=== PATIENT | male | born 1980 | race American Indian/Alaskan Native ===

== ENCOUNTER 2018-02-17 08:08 | Observation (INO) | payer MEDICARE ==
[~2018-02-17 08:08] MED LIST: ANCEF/STERILE WATER 2 GM/20 ML 2 GM/20 ML SYRINGE IV NR; LACTATED RINGERS 1,000 ML IV SCH; VERSED IV NR
--- NOTE | 2018-02-17 08:54 | Anesthesia Day of Surgery ---
Anesthesia Day of Surgery - Day of Surgery Patient Examined: Yes Patient H&P Reviewed: Yes Patient is NPO: Yes
--- NOTE | 2018-02-17 08:54 | Anesthesia Consultation ---
Anesthesia Consult and Med Hx Date of service: 02/17/18 - Airway Anesthetic Teeth Evaluation: Poor ROM Head & Neck: Adequate Mental/Hyoid Distance: Adequate Mallampati Class: Class II Intubation Access Assessment: Probably Good - Pulmonary Exam CTA: Yes - Cardiac Exam Cardiac Exam: RRR - Pre-Operative Health Status ASA Pre-Surgery Classification: ASA4 Proposed Anesthetic Plan: General - Pulmonary Hx Smoking: Yes - Cardiovascular System Hx Hypertension: Yes - Central Nervous System Hx Psychiatric Problems: No - Endocrine Hx Renal Disease: Yes Hx End Stage Renal Disease: Yes Hx Insulin Dependent Diabetes: Yes - Other Systems Hx Alcohol Use: No Hx Substance Use: Yes (Marijuana every other day) Hx Cancer: No - Additional Comments Anesthesia Medical History Comments: glaucoma, right eye blindness
[2018-02-17 08:55] LABS: Basophils % (Auto) 0.7 % (0.0-1.8); Eosinophils # (Auto) 0.5 K/mm3 (0.0-0.4); Eosinophils % (Auto) 9.6 % (0.0-4.3); Hematocrit 34.5 % (35.5-45.6); Hemoglobin 11.6 gm/dl (11.8-15.2); Lymphocytes # (Auto) 1.2 K/mm3 (1.2-5.4); Lymphocytes % (Auto) 22.3 % (13.4-35.0); Mean Corpuscular HGB Conc 34 % (32-34); Mean Corpuscular Hemoglobin 30 pg (28-32); Mean Corpuscular Volume 89 fl (84-94); Monocytes # (Auto) 0.4 K/mm3 (0.0-0.8); Monocytes % (Auto) 8.2 % (0.0-7.3); Platelet Count 197 K/mm3 (140-440); Red Blood Count 3.87 M/mm3 (3.65-5.03); Red Cell Distribution Width 18.4 % (13.2-15.2)
[2018-02-17] MEDS ORDERED: SUBLIMAZE IV PRN (08:55)
[2018-02-17] MEDS ORDERED: PEPCID IV NR (09:00)
[2018-02-17] MEDS: NACL 0.9% 1000 ML 1,000 ML IV SCH ×2 (09:05→17:30)
[2018-02-17 09:07] LABS: Calcium 9.7 mg/dL (8.4-10.2)
[2018-02-17] MEDS ORDERED: NACL 0.9% 500 ML 500 ML ONE (09:39)
[2018-02-17] MEDS ORDERED: PROTAMINE SULFATE ONE (09:39)
[2018-02-17] MEDS ORDERED: XYLOCAINE 1%/ EPI 1:100,000 INFILTRATI ONE (09:39)
[2018-02-17] MEDS ORDERED: MARCAINE 0.5% 30 ML INFILTRATI ONE (09:39)
[2018-02-17] MEDS ORDERED: HEPARIN 10,000 UNITS/10 ML ONE (09:39)
[2018-02-17] MEDS ORDERED: XYLOCAINE MPF 2% ONE (10:35)
[2018-02-17] MEDS ORDERED: DIPRIVAN 10 MG/ML IV ONE ×2 (10:36→11:07)
[2018-02-17] MEDS ORDERED: SUBLIMAZE ONE (10:36)
[2018-02-17] MEDS ORDERED: HEPARIN 10,000 UNITS/10 ML 2,000 UNIT in NACL 0.9% 500 ML 500 ML IR ONE (11:01)
[2018-02-17] MEDS ORDERED: MARCAINE 0.5% INFILTRATI ONE ×2 (11:16)
[2018-02-17] MEDS ORDERED: NEO SYNEPHRINE/NS Syringe(OR USE) IV ONE (11:17)
[2018-02-17] MEDS ORDERED: NACL 0.9% IR ONE (11:17)
[2018-02-17] MEDS ORDERED: DILAUDID ONE (11:39)
--- NOTE | 2018-02-17 13:45 | Operative Report ---
Operative Report Operative Report: Operative note: Date: 02/17/2018 Preoperative diagnosis: Renal failure requiring hemodialysis Postoperative diagnosis: Same. Operation: Creation of first stage left brachial basilic AV fistula Surgeon: Mallory Palma. Asst.:Marcio Puga Anesthesia: Gen. EBL: Minimal Findings:. patent brachial artery with plaque. Patient did not have palpable radial or ulnar pulses before procedure. Indications: Patient is 37-year-old gentleman currently on hemodialysis via right IJ PermCath came to office to schedule for permanent access creation. She had AV mapping performed showing the best option is basilic vein AV fistula. Patient was discussed risk and benefits of procedure and chose to proceed, signed informed consent. Operative details: The ultrasound was performed identifying basilic vein. It was compressible is good size throughout its length. Incision was made about 1 cm below elbow crease in vertical fashion above marked basilic vein branches. Timeout was performed. I dissected around basilic vein mobilizing it. Another incision in the vertical fashion on top of marked brachial artery was created was 15 blade and carried down with electrocautery. Brachial aponeurosis was incised and brachial artery was dissected it was taken on vessel loops distally and proximally. Basilic vein was transected distally and was ligated with 3-0 silk. It was irrigated with heparinized saline with olive-tipped syringe. Patient was heparinozed. Distal and proximal control of brachial artery was gained by vessel loops. Since the artery was very calcified, distal and proximal control was also gained by angled vascular DeBakey clamps. Arteriotomy was created with 11 blade and extended with Taylor scissors. Anastomosis was created was running 6-0 Prolene. When the artery was unclamped , there was identified Doppler radial and ulnar signals and thrill in the basilic vein. Hemostasis was achieved with electrocautery and wound was closed in 2 layers with 3-0 Vicryl and 4-0 Monocryl. Dermabond glue applied. Needle and sponge counts were correct 2. Patient tolerated procedure well and was transferred to PACU in stable condition.
[2018-02-17] MEDS ORDERED: NORCO 5/325 PO PRN (13:46)
[2018-02-17] MEDS ORDERED: NORMODYNE IV ONE ×2 (14:16→14:30)
--- NOTE | 2018-02-17 14:26 | Post Anesthesia Evaluation ---
- Post Anesthesia Evaluation Patient Participated: Yes Airway Patent: Yes Stable Respiratory Function: Yes Nausea/Vomiting: No Temp > 96.8F: Yes Pain Manageable: Yes Adequeate Hydration: Yes Anesthesia Complications: No
[2018-02-17] MEDS ORDERED: NORMODYNE IV NR (15:00)
--- NOTE | 2018-02-17 17:08 | History and Physical Report ---
History of Present Illness Date of examination: 02/17/18 Date of admission: 02/17/18 13:40 Chief complaint: ESRD on HD History of present illness: Pt is a 37y/o male with ESRD on HD taken to the OR today for left AV-fistular insertion. The vascular surgeon, Dr. Palma, requested the hospitalis service to admit the pt for HD which he gets on Saturday, and Saturday. Pt denies any fever, chills, nausea of vomiting Past History Past Medical History: diabetes, ESRD, hypertension Past Surgical History: Other (I & D as a child) Social history: smoking. denies: alcohol abuse, IV drug use, full code Family history: no significant family history Medications and Allergies Allergies Allergy/AdvReac Type Severity Reaction Status Date / Time No Known Allergies Allergy Verified 02/16/18 14:49 Active Meds: Active Medications Acetaminophen/Hydrocodone Bitart ([place] 5/325) 1 each PO Q4H PRN PRN Reason: Pain, Moderate (4-6) Heparin Sodium (Porcine) (Heparin) 5,000 unit SUB-Q Q12HR JESSICA Cefazolin Sodium (Ancef/Sterile Water 2 Gm/20 Ml) 2 gm in 20 mls @ 80 mls/hr IV PREOP NR; Protocol Stop: 02/17/18 23:59 Sodium Chloride (Nacl 0.9% 1000 Ml) 1,000 mls @ 42 mls/hr IV DIRECT JESSICA Last Admin: 02/17/18 09:05 Dose: 42 mls/hr Lactated Ringer's (Lactated Ringers) 1,000 mls @ 100 mls/hr IV DIRECT JESSICA Midazolam HCl (Versed) 2 mg IV PREOP NR Stop: 02/17/18 23:59 Last Admin: 02/17/18 09:10 Dose: 2 mg Review of Systems Constitutional: no anorexia, no fatigue Ears, nose, mouth and throat: no deferred, no ear pain, no ear discharge, no tinnitis, no decreased hearing Cardiovascular: no chest pain, no orthopnea, no palpitations, no rapid/ irregular heart beat, no edema Respiratory: no cough, no cough with sputum, no excessive sputum, no hemoptysis Gastrointestinal: no abdominal pain, no nausea, no vomiting, no diarrhea Genitourinary Male: no dysuria, no hematuria, no flank pain Musculoskeletal: no neck stiffness, no neck pain, no shooting arm pain, no low back pain, no redness of joints Integumentary: no rash, no pruritis, no redness, no sores Neurological: no head injury, no transient paralysis, no paralysis, no weakness , no parathesias Psychiatric: no anxiety, no memory loss, no change in sleep habits, no sleep disturbances Endocrine: no cold intolerance, no heat intolerance, no polyphagia, no excessive thirst, no polydipsia Hematologic/Lymphatic: no easy bruising, no easy bleeding Allergic/Immunologic: no urticaria, no allergic rhinitis Exam - Constitutional Vitals: Temp Pulse Resp BP Pulse Ox 97.4 F L 79 16 157/88 100 02/17/18 15:15 02/17/18 15:15 02/17/18 15:15 02/17/18 15:15 02/17/18 15:15 General appearance: Present: no acute distress, well-nourished, other (blind on kely right eye grom glaucoma) - EENT Eyes: Present: PERRL ENT: hearing intact, clear oral mucosa - Neck Neck: Present: supple, normal ROM - Respiratory Respiratory effort: normal Respiratory: bilateral: CTA - Cardiovascular Heart Sounds: Present: S1 & S2. Absent: rub, click - Extremities Extremities: pulses symmetrical, No edema Peripheral Pulses: within normal limits - Abdominal General gastrointestinal: Present: soft, non-tender, non-distended, normal bowel sounds - Integumentary Integumentary: Present: clear, warm, dry - Musculoskeletal Musculoskeletal: gait normal, strength equal bilaterally - Psychiatric Psychiatric: appropriate mood/affect, intact judgment & insight - Neurologic Neurologic: CNII-XII intact, moves all extremities Results - Labs CBC & Chem 7: 02/17/18 08:30 02/17/18 08:30 Labs: Abnormal lab results 02/17/18 02/17/18 02/17/18 Range/Units 08:30 08:30 08:49 Hgb 11.6 L (11.8-15.2) gm/dl Hct 34.5 L (35.5-45.6) % RDW 18.4 H (13.2-15.2) % [place] % (Auto) 8.2 H (0.0-7.3) % Eos % (Auto) 9.6 H (0.0-4.3) % Eos # 0.5 H (0.0-0.4) K/mm3 Potassium 5.1 H (3.6-5.0) mmol/L BUN 52 H (9-20) mg/dL Creatinine 13.9 H (0.8-1.5) mg/dL Glucose 105 H (75-100) mg/dL POC Glucose 118 H (70-105) Assessment and Plan - ESRD on HD on ,, Sat s/p AV fistula placement Nephrology consult to continue with HD - HTN Fairly well controlled fo pt with /ESRD - T2DM SSI ADA diet - Mild hyperkalemia with K of 5.1 Kayxalate - DVT PPx with Heparin
[2018-02-17] MEDS: HEPARIN SUB-Q SCH ×3 (17:28→23:34)
[2018-02-17] MEDS ORDERED: D50W (25GM) Syringe IV PRN (18:23)
[2018-02-17] MEDS ORDERED: KIONEX PO ONE (18:23)
[2018-02-17] MEDS ORDERED: HumaLOG SUB-Q SCH (22:00)
[2018-02-18] MEDS ORDERED: D50W (25GM) Vial IV ONE (08:19)
[2018-02-18 08:44] LABS: Basophils % (Auto) 0.6 % (0.0-1.8); Eosinophils # (Auto) 0.5 K/mm3 (0.0-0.4); Eosinophils % (Auto) 8.4 % (0.0-4.3); Hematocrit 32.7 % (35.5-45.6); Hemoglobin 10.8 gm/dl (11.8-15.2); Lymphocytes % (Auto) 18.1 % (13.4-35.0); Mean Corpuscular HGB Conc 33 % (32-34); Mean Corpuscular Hemoglobin 29 pg (28-32); Mean Corpuscular Volume 89 fl (84-94); Monocytes # (Auto) 0.5 K/mm3 (0.0-0.8); Monocytes % (Auto) 8.2 % (0.0-7.3); Platelet Count 195 K/mm3 (140-440); Red Blood Count 3.68 M/mm3 (3.65-5.03); Red Cell Distribution Width 18.1 % (13.2-15.2)
[2018-02-18] MEDS ORDERED: D50W (25GM) Syringe IV ONE (09:00)
[2018-02-18 09:01] LABS: Albumin 3.2 g/dL (3.9-5); BUN/Creatinine Ratio 4; Blood Urea Nitrogen 54 mg/dL (9-20); Calcium 8.7 mg/dL (8.4-10.2); Hemolysis Index 3
[2018-02-18 09:04] LABS: Alanine Aminotransferase < 5 units/L (7-56)
--- NOTE | 2018-02-18 09:38 | Event Note ---
Date: 02/18/18 Pt is s/p L Brachial Basilic AVF yesterday. Post-operatively he did not have anyone to stay with him overnight. Under these circumstances, [facility] protocol dictates that the pt should be kept overnight for observation post-operatively. His surgery (and post-operative condition) did not dictate his need for admission for greater than 2 midnights. The Hospitalist were contacted, and they made arrangements for the pt to be kept post-operatively. No objection from a surgical standpoint to discharge once cleared medically.
[2018-02-18] MEDS ORDERED: NACL 0.9% 100 ML IV PRN (10:29)
[2018-02-18] MEDS ORDERED: PROCRIT IV PRN (10:29)
[2018-02-18] MEDS ORDERED: ALBURX 25% (ALBUMIN) IV PRN (10:29)
--- NOTE | 2018-02-18 10:31 | Consultation ---
History of Present Illness - Reason for Consult Consult date: 02/18/18 end stage renal disease, hyperkalemia Requesting physician: STEVEN BURTON - History of Present Illness Pt is a 37y/o male with ESRD on HD taken to the OR today for left AV-fistular insertion. The vascular surgeon, Dr. Palma, requested the hospitalis service to admit the pt for HD which he gets on Saturday, and Saturday. Pt denies any fever, chills, nausea of vomiting Past History Past Medical History: diabetes, ESRD, hypertension Past Surgical History: Other (I & D as a child) Social history: smoking. denies: alcohol abuse, IV drug use, full code Family history: no significant family history Review of Systems Constitutional: no anorexia, no fatigue Ears, nose, mouth and throat: no deferred, no ear pain, no ear discharge, no tinnitis, no decreased hearing Cardiovascular: no chest pain, no orthopnea, no palpitations, no rapid/ irregular heart beat, no edema Respiratory: no cough, no cough with sputum, no excessive sputum, no hemoptysis Gastrointestinal: no abdominal pain, no nausea, no vomiting, no diarrhea Genitourinary Male: no dysuria, no hematuria, no flank pain Musculoskeletal: no neck stiffness, no neck pain, no shooting arm pain, no low back pain, no redness of joints Integumentary: no rash, no pruritis, no redness, no sores Neurological: no head injury, no transient paralysis, no paralysis, no weakness , no parathesias Psychiatric: no anxiety, no memory loss, no change in sleep habits, no sleep disturbances Endocrine: no cold intolerance, no heat intolerance, no polyphagia, no excessive thirst, no polydipsia Hematologic/Lymphatic: no easy bruising, no easy bleeding Allergic/Immunologic: no urticaria, no allergic rhinitis Past History Past Medical History: diabetes, ESRD, hypertension Past Surgical History: Other (I & D as a child) Social history: smoking. denies: alcohol abuse, IV drug use, full code Family history: no significant family history Medications and Allergies Allergies Allergy/AdvReac Type Severity Reaction Status Date / Time No Known Allergies Allergy Verified 02/16/18 14:49 Active Meds: Active Medications Acetaminophen/Hydrocodone Bitart ([place] 5/325) 1 each PO Q4H PRN PRN Reason: Pain, Moderate (4-6) Last Admin: 02/17/18 17:30 Dose: 1 each Dextrose (D50w (25gm) Syringe) 50 ml IV PRN PRN PRN Reason: Hypoglycemia Heparin Sodium (Porcine) (Heparin) 5,000 unit SUB-Q Q12HR [facility] Last Admin: 02/17/18 23:34 Dose: Not Given Insulin Human Lispro (Humalog) 0 unit SUB-Q ACHS [facility]; Protocol Last Admin: 02/17/18 22:56 Dose: Not Given Exam - Vital Signs Vital signs: Vital Signs Temp Pulse Resp BP Pulse Ox 97.3 F L 78 22 147/84 100 02/17/18 13:46 02/17/18 13:46 02/17/18 13:46 02/17/18 13:46 02/17/18 13:46 - Physical Exam Narrative exam: General appearance: Present: no acute distress, well-nourished, other (blind on kely right eye grom glaucoma) - EENT Eyes: Present: PERRL ENT: hearing intact, clear oral mucosa - Neck Neck: Present: supple, normal ROM - Respiratory Respiratory effort: normal Respiratory: bilateral: CTA - Cardiovascular Heart Sounds: Present: S1 & S2. Absent: rub, click - Extremities Extremities: pulses symmetrical, No edema Peripheral Pulses: within normal limits - Abdominal General gastrointestinal: Present: soft, non-tender, non-distended, normal bowel sounds - Integumentary Integumentary: Present: clear, warm, dry - Musculoskeletal Musculoskeletal: gait normal, strength equal bilaterally - Psychiatric Psychiatric: appropriate mood/affect, intact judgment & insight - Neurologic Neurologic: CNII-XII intact, moves all extremities Results - Lab Results 02/18/18 08:22 02/18/18 08:22 Most recent lab results Calcium 8.7 mg/dL (8.4-10.2) 02/18/18 08:22 Assessment and Plan Impression: - ESRD on HD on ,, Sat s/p AV fistula placement -hd today, can dc home after hd - HTN Fairly well controlled fo pt with /ESRD - T2DM SSI ADA diet - Mild hyperkalemia hd today, should improve k level
[2018-02-18] MEDS ORDERED: HEPARIN IV PRN ×2 (13:26→13:47)
[2018-02-18] MEDS ORDERED: NACL 0.9 (PRIMING MACHINE ONLY DIALYSIS) MC ONE (13:34)
--- NOTE | 2018-02-18 13:54 | Discharge Summary ---
Providers - Providers Date of Admission: 02/17/18 13:40 Date of discharge: 02/18/18 Attending physician: JOANNE CORREA DO 02/17/18 18:24 Consult to Physician [CONS] Routine Comment: Consulting Provider: STEPHANIE MCCULLOUGH Physician Instructions: Reason For Exam: ESRD on HD Primary care physician: CHILLING HOOD OPERATOR Hospitalization Condition: Stable Hospital course: (meditech crashed and I lost my entire discharge summary) Disposition: DC- TO HOME OR SELFCARE Time spent for discharge: 31 min Core Measure Documentation - Palliative Care Palliative Care/ Comfort Measures: Not Applicable - Core Measures Any of the following diagnoses?: none - VTE Discharge Requirements Deep Vein Thrombosis/Pulmonary Embolism Present on Admission: No Has pt received <5 days of overlap therapy or INR<2.0: No Anticoagulant overlap therapy prescribed at discharge: No Contraindication No Overlap Therapy order at DC: Not Indicated Exam - Physical Exam Narrative exam: GEN: WDWN, NAD, Awake, Alert, Orientated HEENT: NCAT, EOMI, PERRL, OP Clear NECK: supple, no adenopathy, no thyromegaly, no JVD CVS/HEART: RRR, normal S1S2, pulses present bilaterally CHEST/LUNGS: CTA B, Symmetrical chest expansion, good air entry bilaterally GI/Abdomen: soft, NTND, good bowel sounds, no guarding or rebound /Bladder: no suprapubic tenderness, no CVA or paraspinal tenderness EXT/Skin: no c/c/e, no obvious rash MSK: FROM x 4 Neuro: CN 2-12 grossly intact, no new focal deficits Psych: calm - Constitutional Vitals: Temp Pulse Resp BP Pulse Ox 98.2 F 102 H 18 144/92 100 02/18/18 11:10 02/18/18 13:00 02/18/18 11:10 02/18/18 13:00 02/18/18 08:31 Plan Activity: other (no strenous activity until cleared by pcp) Diet: renal Follow up with: DAVIDSON DUFFY MD [Primary Care Provider] - 7 Days STEPHANIE MCCULLOUGH MD [Staff Physician] - 7 Days JOANNE CORREA DO [Staff Physician] - 7 Days Prescriptions: HYDROcodone/APAP 5-325 [[place] 5-325 mg TAB] 1 each PO Q4H PRN #10 tablet PRN Reason: Pain , Severe (7-10)
[2018-02-18 15:37] VITALS: BP 160/92
== END 2018-02-18 16:50 | disposition home or self-care (01) ==
LOC: OR 08:08 → UNDOADMOB 13:40 → INTOOBSV 13:40 → 3A 13:40 → UNDODISOB 02-18 16:50
PROVIDERS: ADMIT Family Medicine; ATTEND Family Medicine
DX: I12.0 Hypertensive chronic kidney disease with stage 5 chronic kidney disease or end stage renal disease (principal); E87.5 Hyperkalemia; N18.6 End stage renal disease; E11.22 Type 2 diabetes mellitus with diabetic chronic kidney disease; E11.65 Type 2 diabetes mellitus with hyperglycemia; Z99.2 Dependence on renal dialysis; F17.200 Nicotine dependence, unspecified, uncomplicated
CPT/HCPCS: 36140; 36415; 80048; 80053; 82962; 85025; 96374; 96375; G0378; J0690; J0885; J1170; J1644; J2250; J2370; J2704; J3010; J7030; J7040; J7120; G0257; J2720

== ENCOUNTER 2018-04-26 17:06 | Emergency (ER) | payer MEDICARE ==
[2018-04-26 19:09] LABS: Basophils % (Auto) 0.4 % (0.0-1.8); Eosinophils # (Auto) 0.1 K/mm3 (0.0-0.4); Eosinophils % (Auto) 0.9 % (0.0-4.3); Lymphocytes # (Auto) 1.1 K/mm3 (1.2-5.4); Lymphocytes % (Auto) 12.7 % (13.4-35.0); Mean Corpuscular HGB Conc 36 % (32-34); Mean Corpuscular Hemoglobin 32 pg (28-32); Mean Corpuscular Volume 88 fl (84-94); Monocytes # (Auto) 0.7 K/mm3 (0.0-0.8); Monocytes % (Auto) 7.8 % (0.0-7.3); Platelet Count 177 K/mm3 (140-440); Red Blood Count 4.67 M/mm3 (3.65-5.03)
[2018-04-26 19:25] LABS: Calcium 9.1 mg/dL (8.4-10.2)
[2018-04-26 19:39] LABS: Hematocrit 40.9 % (35.5-45.6); Hemoglobin 14.8 gm/dl (11.8-15.2)
[2018-04-26 19:41] LABS: Chol/HDL Ratio 3.65 %
[2018-04-26] MEDS ORDERED: NORMODYNE IV ONE (23:36)
--- NOTE | 2018-04-26 23:41 | Emergency Department Report ---
HPI - General Chief Complaint: Medical Clearance Time Seen by Provider: 04/26/18 23:19 - HPI HPI: 37-year-old male presents to the emergency department from his dialysis clinic at [facility] with a complaint of an elevated heart rate. He says that this is been an issue for him for the past couple of weeks. Sometimes he does feel as if his heart is racing. He denies any chest pain, shortness of breath, fever, nausea, vomiting. 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 He also has a history of diabetes and hypertension. He says that he takes 3 blood pressure medications and takes them about every other day because it use to drop his blood pressure too much on the days of dialysis. He does not have a primary care physician or head refrigerating engineer. He has not taken anything for his symptoms prior to presentation. ED Past Medical Hx - Past Medical History Hx Hypertension: Yes Hx Diabetes: Yes Hx Renal Disease: Yes - Social History Smoking Status: Current Every Day Smoker Substance Use Type: None - Medications Home Medications: Home Medications Medication Instructions Recorded Confirmed Last Taken Type HYDROcodone/APAP 5-325 [[place] 1 each PO Q4H PRN #10 tablet 02/18/18 Unknown Rx 5-325 mg TAB] ED Review of Systems ROS: Stated complaint: HEART RATE Other details as noted in HPI Comment: All other systems reviewed and negative Constitutional: denies: chills, fever Eyes: denies: eye pain, eye discharge, vision change ENT: denies: ear pain, throat pain Respiratory: denies: cough, shortness of breath, wheezing Cardiovascular: palpitations. denies: chest pain Gastrointestinal: denies: abdominal pain, nausea, diarrhea Genitourinary: denies: urgency, dysuria Musculoskeletal: denies: back pain, joint swelling, arthralgia Skin: denies: rash, lesions Neurological: denies: headache, weakness, paresthesias Physical Exam - Physical Exam Vital Signs: Vital Signs 04/26/18 04/26/18 04/26/18 17:18 21:13 23:16 Temperature 98.1 F 98.5 F Pulse Rate 120 H 70 107 H Respiratory 18 18 11 L Rate Blood Pressure 144/69 171/84 O2 Sat by Pulse 100 100 Oximetry 0704/26/18 04/26/18 23:17 23:19 23:21 Temperature Pulse Rate 109 H 110 H 120 H Respiratory 20 19 17 Rate Blood Pressure 193/161 193/161 193/161 O2 Sat by Pulse Oximetry 04/26/18 04/26/18 04/26/18 23:23 23:25 23:32 Temperature Pulse Rate 120 H 106 H Respiratory 14 16 18 Rate Blood Pressure 193/161 193/161 O2 Sat by Pulse Oximetry Physical Exam: GENERAL: The patient is well-developed well-nourished. HENT: Normocephalic. Atraumatic. Patient has moist mucous membranes. EYES: Extraocular motions are intact. Pupils equal reactive to light bilaterally. NECK: Supple. Trachea is midline. CHEST/LUNGS: Clear to auscultation. There is no respiratory distress noted. There is a right-sided chest port in place. HEART/CARDIOVASCULAR: Regular. There is mild tachycardia. There is no murmur. ABDOMEN: Abdomen is soft, nontender. Patient has normal bowel sounds. There is no abdominal distention. SKIN: Skin is warm and dry. NEURO: The patient is awake, alert, and oriented. The patient is cooperative. The patient has no focal neurologic deficits. The patient has normal speech and gait. MUSCULOSKELETAL: There is no tenderness or deformity. There is no limitation range of motion. There is no evidence of acute injury. ED Course Vital Signs 04/26/18 04/26/18 04/26/18 17:18 21:13 23:16 Temperature 98.1 F 98.5 F Pulse Rate 120 H 70 107 H Respiratory 18 18 11 L Rate Blood Pressure 144/69 171/84 O2 Sat by Pulse 100 100 Oximetry 04/26/18 04/26/18 04/26/18 23:17 23:19 23:21 Temperature Pulse Rate 109 H 110 H 120 H Respiratory 20 19 17 Rate Blood Pressure 193/161 193/161 193/161 O2 Sat by Pulse Oximetry 04/26/18 04/26/18 04/26/18 23:23 23:25 23:32 Temperature Pulse Rate 120 H 106 H Respiratory 14 16 18 Rate Blood Pressure 193/161 193/161 O2 Sat by Pulse Oximetry - Consultations Consultation #1: 04/27/18 06:[address] Willingham, who suggested giving Kayexalate for the hyperkalemia but otherwise the rest of the labs aren't concerning to the nephrology service and the patient can continue with his normal dialysis regiment. ED Medical Decision Making - Lab Data Result diagrams: 04/26/18 18:41 04/26/18 18:41 - EKG Data -: EKG Interpreted by Me EKG shows normal: sinus rhythm, axis, intervals, QRS complexes (LVH, early repolarization), ST-T waves Rate: tachycardia (110 bpm) - EKG Data When compared to previous EKG there are: previous EKG unavailable Interpretation: other (sinus tachycardia at 110, LVH, early repolarization) - Radiology Data Radiology results: report reviewed, image reviewed interpreted by me: Chest x-ray does not show any pleural effusions, pneumothorax, pneumonia or any other acute process. Ventilation perfusion scan is negative for pulmonary embolus. - Medical Decision Making Patient presented from dialysis secondary to some tachycardia. He says that this is been going on for the past couple of weeks. While occasionally he will feel as if his heart rate is elevated, currently has no palpitations and says that he never has any chest pain or shortness of breath. EKG was done that does not show any signs of ST elevation MS or any significant dysrhythmia. Chest x-ray does not show any pleural effusions, pneumothorax, pneumonia or any other acute process. The patient's labs show some hyperkalemia with potassium of 5.5. He has elevated BUN/creatinine but it is consistent with previous visits. I spoke with Dr. Willingham, who suggested giving Kayexalate for the hyperkalemia but otherwise the rest of the labs aren't concerning to the nephrology service and the patient can continue with his normal dialysis regiment. Someone ordered a troponin on the patient to triage that did come back elevated. However I do not believe this is a valid results in this patient as the patient does not have any chest pain and has known end-stage renal disease and his troponins will be chronically elevated. A second was obtained that does show that it is trended downwards as well. A d-dimer was obtained to assess the patient for the possibility of a pulmonary embolism as a source of his tachycardia. His d-dimer did come back elevated and therefore a VQ scan was done that resulted as negative for pulmonary embolism. The patient was reevaluated multiple times for multiple hours and says that he is feeling well and asking for discharge home. His heart rate went down to about 105 without any rate control medication or any IV fluid. He appears safe for discharge home at this time. He has been given a referral for cardiology to follow up regarding the tachycardia. He has been instructed to return to the emergency department with any development of chest pain, shortness of breath, palpitations or with any acute distress. - Differential Diagnosis dysrhythmia, pulmonary embolism, CHF, hyperthyroid Critical Care Time: No Critical care attestation.: If time is entered above; I have spent that time in minutes in the direct care of this critically ill patient, excluding procedure time. ED Disposition Clinical Impression: Tachycardia, Hyperkalemia, ESRD on hemodialysis Disposition: TO HOME OR SELFCARE Is pt being admited?: No Condition: Stable Instructions: Chronic Kidney Disease (ED) Additional Instructions: Please follow-up with your laundry press operator and continue with your normal dialysis regiment. I have given you a referral for a local head refrigerating engineer, Dr. Brooke, to follow up regarding your elevated heart rate. Return to the emergency department with any chest pain, palpitations, shortness of breath, or with any acute distress. Try to avoid any caffeinated products. Referrals: STEPHAINE METCALF MD [Staff Physician] - ALEXIS NUGENT MD [Staff Physician] - LAURENCE Time of Disposition: 05:48
[2018-04-26] MEDS ORDERED: KIONEX PO ONE (23:47)
--- NOTE | 2018-04-27 02:57 | XRay Report ---
FINAL REPORT EXAM: XR CXR CLINICAL INDICATIONS: PALPIATATIONS FINDINGS: Single frontal view of the chest was acquired. The heart is normal in size. There is a right-sided catheter with its tip in the right atrium. There is no pneumothorax. There is no consolidative infiltrate. The pulmonary vasculature is within normal limits. There is no pneumothorax. IMPRESSION: NO ACTIVE DISEASE IN THE CHEST
[2018-04-27] MEDS ORDERED: NACL 0.9% 250ML 250 ML IV ONE (04:47)
--- NOTE | 2018-04-27 05:00 | Nuclear Medicine Report ---
FINAL REPORT PROCEDURE: NM LUNG SCAN PERF/VENT TECHNIQUE: 5.4 mCi Tc-99m MAA was injected IV for pulmonary perfusion imaging in multiple projections. 14.9 mCi xenon 133 aerosol was inhaled for pulmonary ventilation imaging in multiple projections. Injection site: RIGHT antecubital fossa. CPT 41033 REGULATORY GUIDELINES: The patient was released based upon guidelines established in [place] State Regulations for Protection Against Radiation, Chapter 1199-11-06-35, Release of Individuals Containing Radioactive Drugs or Implants. HISTORY: Palpitations, elevated dimer COMPARISON: No prior studies are available for comparison. FINDINGS: Perfusion: No defects . Ventilation: No defects . IMPRESSION: Normal Examination
[2018-04-27 05:40] VITALS: BP 126/69
== END 2018-04-27 06:07 | disposition home or self-care (01) ==
LOC: ED 17:06
DX: E87.5 Hyperkalemia (principal); I12.0 Hypertensive chronic kidney disease with stage 5 chronic kidney disease or end stage renal disease; E11.22 Type 2 diabetes mellitus with diabetic chronic kidney disease; N18.6 End stage renal disease; F17.200 Nicotine dependence, unspecified, uncomplicated; Z99.2 Dependence on renal dialysis
CPT/HCPCS: 36415; 71045; 78582; 80048; 80061; 84443; 84484; 85025; 85379; 93005; 93010; 99284; A9540; A9558

== ENCOUNTER 2018-06-23 09:54 | Day surgery (SDC) | payer MEDICARE ==
[~2018-06-23 09:54] MED LIST changes: -LACTATED RINGERS 1,000 ML IV SCH; +NACL 0.9% 1000 ML 1,000 ML IV SCH; -VERSED IV NR
--- NOTE | 2018-06-23 10:47 | Anesthesia Consultation ---
Anesthesia Consult and Med Hx Date of service: 06/23/18 - Airway Anesthetic Teeth Evaluation: Good ROM Head & Neck: Adequate Mental/Hyoid Distance: Adequate Mallampati Class: Class II Intubation Access Assessment: Probably Good - Pulmonary Exam CTA: Yes - Cardiac Exam Cardiac Exam: RRR - Pre-Operative Health Status ASA Pre-Surgery Classification: ASA4 Proposed Anesthetic Plan: General - Pulmonary Hx Smoking: Yes (1/2 PPD x 10yrs) Hx Asthma: No Hx Respiratory Symptoms: No SOB: No COPD: No - Cardiovascular System Hx Hypertension: Yes (off antihypertensives x 2 wks; reports low BP) Hx Heart Attack/AMI: No Hx Percutaneous Transluminal Coronary Angioplasty (PTCA): No - Central Nervous System Hx Seizures: No CVA: No - Gastrointestinal Hx Gastroesophageal Reflux Disease: No - Endocrine Hx End Stage Renal Disease: Yes (TTS HD via RIJ permcath; last HD 06/21) Hx Insulin Dependent Diabetes: Yes (Off insulin x2 week; reports glucose 120s at home) Hx Thyroid Disease: No - Other Systems Hx Alcohol Use: No Hx Substance Use: Yes (Marijuana occas) Hx Cancer: No Hx Obesity: No
[2018-06-23] MEDS ORDERED: SUBLIMAZE IV PRN (10:48)
--- NOTE | 2018-06-23 10:48 | Anesthesia Day of Surgery ---
Anesthesia Day of Surgery - Day of Surgery Patient Examined: Yes Patient H&P Reviewed: Yes Patient is NPO: Yes
[2018-06-23] MEDS ORDERED: MARCAINE-EPI 0.5%-1:200,000 INFILTRATI ONE ×3 (10:55→13:03)
[2018-06-23] MEDS ORDERED: MARCAINE 0.5% INFILTRATI ONE (10:55)
[2018-06-23] MEDS ORDERED: HEPARIN 10,000 UNITS/10 ML ONE (10:55)
[2018-06-23] MEDS ORDERED: NACL 0.9% 500 ML 500 ML ONE (10:56)
[2018-06-23 11:27] LABS: Red Blood Count 3.97 M/mm3 (3.65-5.03)
[2018-06-23 11:28] LABS: Basophils % (Auto) 0.7 % (0.0-1.8); Eosinophils # (Auto) 0.4 K/mm3 (0.0-0.4); Eosinophils % (Auto) 8.5 % (0.0-4.3); Hematocrit 38.2 % (35.5-45.6); Hemoglobin 12.4 gm/dl (11.8-15.2); Lymphocytes # (Auto) 1.3 K/mm3 (1.2-5.4); Lymphocytes % (Auto) 26.5 % (13.4-35.0); Mean Corpuscular HGB Conc 33 % (32-34); Mean Corpuscular Hemoglobin 31 pg (28-32); Mean Corpuscular Volume 96 fl (84-94); Monocytes # (Auto) 0.3 K/mm3 (0.0-0.8); Monocytes % (Auto) 6.7 % (0.0-7.3); Platelet Count 218 K/mm3 (140-440); Red Cell Distribution Width 16.2 % (13.2-15.2)
[2018-06-23 11:40] LABS: Calcium 9.5 mg/dL (8.4-10.2)
[2018-06-23] MEDS ORDERED: SUBLIMAZE ONE (11:55)
[2018-06-23] MEDS ORDERED: DIPRIVAN 10 MG/ML IV ONE ×2 (11:56→13:09)
[2018-06-23] MEDS ORDERED: ZOFRAN ONE (12:41)
[2018-06-23] MEDS ORDERED: XYLOCAINE MPF 2% ONE (12:41)
[2018-06-23] MEDS ORDERED: HEPARIN 10,000 UNITS/10 ML IV ONE (13:04)
[2018-06-23] MEDS ORDERED: NACL 0.9% IR ONE ×2 (13:04)
[2018-06-23] MEDS ORDERED: NACL 0.9% 500 ML IRRIGATION ONE (13:05)
[2018-06-23] MEDS ORDERED: NEO SYNEPHRINE/NS Syringe(OR USE) IV ONE ×2 (13:26→14:50)
[2018-06-23] MEDS ORDERED: PAPAVERINE ONE (14:19)
--- NOTE | 2018-06-23 16:06 | Operative Report ---
Operative Report Operative Report: Operative note: Date: 06/23/2018 Preoperative diagnosis: Endstage renal disease on hemodialysis via right IJ PermCath. Patient had a brachiobasilic AV fistula creation as a first stage. Postoperative diagnosis: Same. Operation: Elevation of left basilic AV fistula Surgeon: Mallory Palma. Asst.: None Anesthesia: Gen. EBL: Minimal Findings: Multiple branches, musculocutaneous nerve identified and preserved Indications: 37-year-old gentleman with end-stage renal disease currently on hemodialysis on Saturday via right IJ PermCath. He underwent left basilic AV fistula creation and now came for second stage basilic fistula elevation. He was explained the risks, benefits and alternatives , agreed with the procedure and signed informed consent. Operative details: Patient was brought to the operating room and placed in supine position with left arm on extension table. It was prepped and draped in sterile fashion. Vein was marked using ultrasound. Timeout was performed and all team members in agreement. Incision was created on marked surface on top of basilic vein initially closer to arterial portion using gently entered with electrocautery to the vein it was dissected and taken a vessel loop to have more retraction. Extending incision and dissecting the vein using Metzenbaum scissors it was dissected throughout its length on the arm into the axilla. All branches were ligated and divided. Respective tunnel was marked and inserted superficially using Atrium tunneler. Marcaine was at the wound injected on top of the tunneler. Head was changed to a #6 patient was heparinized with 3000 units of heparin. Proximally the vein was clamped using bulldog and marked. It was transected close to arterial anastomosis in a beveled fashion with Taylor scissors. Vein was slightly dilated and tight on venous head. It was tunneled successfully and then flushed with heparinized saline. Anastomosis was created using 6-0 Prolene in a running fashion. Upon completion of anastomosis proximal distal control was opened and good thrill appreciated superficially in the basilic vein. Radial pulse was easily palpable. Wound edges were anesthetized with Marcaine and closed in 2 layers was through Vicryl and 4-0 Monocryl. Dermabond was applied. Patient tolerated procedure well and was transferred to PACU in stable condition.
--- NOTE | 2018-06-23 16:18 | Short Stay Summary ---
Short Stay Documentation Date of service: 06/23/18 - History H&P: obtained from office - Allergies and Medications Current Medications: Allergies No Known Allergies Allergy (Verified 06/20/18 09:50) Home Medications Medication Instructions Recorded Confirmed Last Taken Type HYDROcodone/APAP 5-325 [[place] 1 each PO Q4H PRN #10 tablet 02/18/18 Unknown Rx 5-325 mg TAB] Active Medications Fentanyl (Sublimaze) 50 mcg IV Q15MIN PRN PRN Reason: Pain , Severe (7-10) Stop: 06/23/18 23:59 Cefazolin Sodium (Ancef/Sterile Water 2 Gm/20 Ml) 2 gm in 20 mls @ 80 mls/hr IV PREOP NR; Protocol Stop: 06/23/20 23:59 Sodium Chloride (Nacl 0.9% 1000 Ml) 1,000 mls @ 42 mls/hr IV DIRECT JESSICA Last Admin: 06/23/18 11:40 Dose: 42 mls/hr - Brief post op/procedure progress note Date of procedure: 06/23/18 Pre-op diagnosis: ESRD on HD, s/p first stage basilic AVF Post-op diagnosis: same Procedure: left basilic vein elevation Anesthesia: GETA Findings: good size basilic Surgeon: JOANNE CORREA Estimated blood loss: minimal Pathology: none Condition: stable - Disposition Condition at discharge: Good Disposition: DC-01 TO HOME OR SELFCARE Short Stay Discharge Plan Diet: renal Wound: open to air Special Instructions: no heavy lifting Follow up with: PRIMARY CAREMD [Primary Care Provider] - 7 Days JOANNE CORREA DO [Staff Physician] - 14 Days Prescriptions: HYDROcodone/ACETAMINOPHEN [[place] 5-325 Tablet] 1 each PO Q4-6H PRN #26 tablet PRN Reason: Pain , Severe (7-10)
[2018-06-23 18:18] VITALS: BP 120/80
== END 2018-06-23 17:45 | disposition home or self-care (01) ==
LOC: OR 09:54
PROVIDERS: ATTEND Surgery Vascular Surgery
DX: I12.0 Hypertensive chronic kidney disease with stage 5 chronic kidney disease or end stage renal disease (principal); E11.22 Type 2 diabetes mellitus with diabetic chronic kidney disease; N18.6 End stage renal disease; E11.39 Type 2 diabetes mellitus with other diabetic ophthalmic complication; H40.9 Unspecified glaucoma; F17.210 Nicotine dependence, cigarettes, uncomplicated; T82.49XA Other complication of vascular dialysis catheter, initial encounter; Z86.2 Personal history of diseases of the blood and blood-forming organs and certain disorders involving the immune mechanism; Z98.890 Other specified postprocedural states; Z79.899 Other long term (current) drug therapy; Z99.2 Dependence on renal dialysis; Y82.8 Other medical devices associated with adverse incidents
CPT/HCPCS: 36415; 36832; 80048; 82962; 85025; J1644; J2370; J2405; J2704; J3010; J7030; J7040; J2440

== ENCOUNTER 2019-03-04 12:18 | Day surgery (SDC) | payer MEDICARE ==
[2019-03-04 13:13] LABS: Basophils % (Auto) 0.7 % (0.0-1.8); Eosinophils # (Auto) 0.3 K/mm3 (0.0-0.4); Eosinophils % (Auto) 6.4 % (0.0-4.3); Hematocrit 36.9 % (35.5-45.6); Hemoglobin 12.6 gm/dl (11.8-15.2); Lymphocytes # (Auto) 1.2 K/mm3 (1.2-5.4); Lymphocytes % (Auto) 23.4 % (13.4-35.0); Mean Corpuscular HGB Conc 34 % (32-34); Mean Corpuscular Volume 97 fl (84-94); Monocytes # (Auto) 0.4 K/mm3 (0.0-0.8); Monocytes % (Auto) 7.8 % (0.0-7.3); Platelet Count 226 K/mm3 (140-440); Red Blood Count 3.82 M/mm3 (3.65-5.03); Red Cell Distribution Width 15.2 % (13.2-15.2)
[2019-03-04 13:32] LABS: INR 0.95 (0.87-1.13)
[2019-03-04 13:33] LABS: Partial Thromboplastin Time 30.8 Sec. (24.2-36.6)
[2019-03-04 13:45] LABS: Calcium 9.9 mg/dL (8.4-10.2)
[2019-03-04] MEDS ORDERED: HEPARIN/NS 5000 UNIT/500ML(CATH LAB) 1,000 ML IR ONE (15:42)
[2019-03-04] MEDS ORDERED: XYLOCAINE 2% INFILTRATI ONE (15:42)
[2019-03-04] MEDS ORDERED: NACL 0.9% 500 ML 500 ML ONE (16:02)
[2019-03-04] MEDS ORDERED: ANCEF/STERILE WATER 2 GM/20 ML 2 GM/20 ML SYRINGE IV ONE (16:12)
[2019-03-04] MEDS: VERSED ONE ×2 (16:31→16:40)
[2019-03-04] MEDS: SUBLIMAZE ONE ×2 (16:31→16:40)
[2019-03-04] MEDS: HEPARIN 10,000 UNITS/10 ML ONE ×2 (16:46→16:50)
[2019-03-04] MEDS ORDERED: VERSED ONE (16:50)
[2019-03-04] MEDS ORDERED: SUBLIMAZE ONE (16:50)
[2019-03-04] MEDS ORDERED: BENADRYL ONE (16:55)
--- NOTE | 2019-03-04 18:09 | Post Operative Note ---
Pre-op diagnosis: peripheral vascular disease left upper extremity with ulcer Post-op diagnosis: same Findings: Both radial and ulnar arteries have modest distal disease but excellent flow into the hand with an mostly intact pedal arch and good digital flow. Arteriographic evidence of steal is not robust. Occlusion of the fistula does not dramatically increase flow to the forearm. No intervention contemplated at this setting. Procedure: Insertion of catheter left radial artery via right common femoral artery approach Insertion of catheter left ulnar artery and right common femoral artery approach Left upper extremity unilateral arteriogram-previous detailed images of the e ntire arm not available Additional selective angiography left forearm Ultrasound-guided access right common femoral artery Anesthesia: other (moderate sedation [phone] for total sedation time of 68 minutes) Surgeon: MARY FERRER Estimated blood loss: minimal Pathology: none Condition: stable Disposition: same day
--- NOTE | 2019-03-04 18:27 | Post Operative Note ---
Date of procedure: 03/04/19 Procedure: Patient Name: CHUNG MISTRY Date of : 82 Patient Status: Surgical Day Care Attending Provider: MARY FERRER Date: 03/04/19 18:03 Initialization Date: 03/04/19 18:03 Pre-op diagnosis: peripheral vascular disease left upper extremity with ulcer Post-op diagnosis: same Findings: Both radial and ulnar arteries have modest distal disease but excellent flow into the hand with an mostly intact pedal arch and good digital flow. Arteriographic evidence of steal is not robust. Occlusion of the fistula does not dramatically increase flow to the forearm. No intervention contemplated at this setting. Procedure: Insertion of catheter left radial artery via right common femoral artery approach Insertion of catheter left ulnar artery and right common femoral artery approach Left upper extremity unilateral arteriogram-previous detailed images of the entire arm not available Additional selective angiography left forearm Ultrasound-guided access right common femoral artery Anesthesia: other (moderate sedation [phone] for total sedation time of 68 minutes) Surgeon: MARY FERRER Estimated blood loss: minimal Pathology: none Condition: stable Disposition: same day
--- NOTE | 2019-03-04 18:33 | Short Stay Summary ---
Short Stay Documentation Date of service: 03/04/19 Narrative H&P: Admitted to the Panel Machine Setter for outpatient diagnostic and possible therapeutic upper extremity angiogram ischemic left hand - History H&P: obtained from office - Allergies and Medications Current Medications: Allergies No Known Allergies Allergy (Verified 06/20/18 09:50) Home Medications Medication Instructions Recorded Confirmed Last Taken Type HYDROcodone/ACETAMINOPHEN [[place] 1 each PO Q4-6H PRN #26 tablet 06/23/18 03/04/19 2 Months Ago Rx 5-325 Tablet] ~01/02/19 Calcium Acetate [Phoslo] 667 mg PO [facility] 03/04/19 03/04/19 1 Day Ago History ~03/03/19 Ibuprofen [Motrin 800 MG tab] 800 mg PO PRN 03/04/19 03/04/19 Unknown History Active Medications Sodium Chloride (Nacl 0.9% 1000 Ml) 1,000 mls @ 42 mls/hr IV DIRECT JESSICA Cefazolin Sodium (Ancef/Sterile Water 2 Gm/20 Ml) 2 gm in 20 mls @ 80 mls/hr IV PREOP NR; Protocol Stop: 03/04/19 23:59 - Brief post op/procedure progress note Date of procedure: 03/04/19 Procedure: [id number] Date of : [birth year] Patient Status: Surgical Day Care Attending Provider: MARY FERRER Date: 03/04/19 18:03 Initialization Date: 03/04/19 18:03 Pre-op diagnosis: peripheral vascular disease left upper extremity with ulcer Post-op diagnosis: same Findings: Both radial and ulnar arteries have modest distal disease but excellent flow into the hand with an mostly intact pedal arch and good digital flow. Arteriographic evidence of steal is not robust. Occlusion of the fistula does not dramatically increase flow to the forearm. No intervention contemplated at this setting. Procedure: Insertion of catheter left radial artery via right common femoral artery approach Insertion of catheter left ulnar artery and right common femoral artery approach Left upper extremity unilateral arteriogram-previous detailed images of the entire arm not available Additional selective angiography left forearm Ultrasound-guided access right common femoral artery Anesthesia: other (moderate sedation [phone] for total sedation time of 68 minutes) Surgeon: MARY FERRER Estimated blood loss: minimal Pathology: none Condition: stable Disposition: same day - Hospital course Hospital course: Unremarkable - Disposition Condition at discharge: Stable Disposition: DC-01 TO HOME OR SELFCARE - Discharge Diagnoses (1) Ulcer of upper extremity Status: Chronic Qualifiers: Non-pressure ulcer stage: limited to breakdown of skin Qualified Code(s): L98.491 - Non-pressure chronic ulcer of skin of other sites limited to breakdown of skin (2) End stage renal disease Status: Chronic Short Stay Discharge Plan Activity: advance as tolerated Diet: renal Wound: keep clean and dry Special Instructions: no heavy lifting Follow up with: KAYE KRUSE MD [Primary Care Provider] - 7 Days MARY FERRER MD [Staff Physician] - 14 Days
[2019-03-04 19:01] VITALS: BP 124/79
--- NOTE | 2019-03-05 12:04 | Operative Report ---
Operative Report Operative Report: Date of procedure: 03/04/2019 Pre-operative diagnosis: Chronic ischemia left hand, end-stage renal disease Post-operative diagnosis: Same Procedure name(s): Insertion of catheter left radial artery via right common femoral artery approach Insertion of catheter left ulnar artery and right common femoral artery approach Left upper extremity unilateral arteriogram-previous detailed images of the entire arm not available Additional selective angiography left forearm Ultrasound-guided access right common femoral artery Surgeon: Baljit Oconnell MD Software Development Project Manager: None Anesthesia: Moderate sedation EBL: None Specimen(s): None Complications: None Findings: Both radial and ulnar arteries have modest distal disease but excellent flow into the hand with an mostly intact pedal arch and good digital flow. Arteriographic evidence of steal is not robust. Occlusion of the fistula does not dramatically increase flow to the forearm. No intervention contemplated at this setting. Procedure: Patient in the supine position after adequate levels of moderate sedation was obtained the patient's right groin and left upper extremity were prepped and draped using standard sterile technique. Ultrasound was used to identify the patent right common femoral vein and a micropuncture needle was advanced under imaging into the lumen and a guidewire was advanced proximally. 5 Ethiopian introducer was placed and eventually trial was then directed proximally to the aortic arch and into the subclavian artery. The catheter was then advanced into the mid subclavian artery and eventually down the arm into the brachial artery. Contrast was injected above the fistula showing the proximal radial artery anastomosis. Flow was noted to go past the fistula into the proximal forearm circulation. I then selectively advanced the catheter into the proximal ulnar artery and injected contrast all the way into the hand. This showed that the ulnar artery was patent and had several areas of modest stenosis but was not preocclusive. At the level of the wrist thenar eminence there was some modest decrease in size of the vessel but it remained patent with a robust collateralization of the digits all the way into the hand. The palmar arch appeared intact although slightly atretic towards the radial side. He manipulated the guide catheter into the radial artery and injected it showing fairly similar findings. Again robust blood vessel formation and the hand was documented. I repeated the entire process with the AV fistula occluded and could not detect any substantial difference in flow. Sequentially backed the catheter into the brachial artery above the anastomosis and injected with an without fistula compression. The evidence for arterial steal was weak. I then sequentially interrogated the entire upper extremity arterial system including the brachial axillary and subclavian arteries to its origin. No significant stenotic lesions were encountered. Because the patient did want that the ulceration on his fingers had improved and did not feel that balloon angioplasty of the moderately diminished distal radial or ulnar artery offered substantial benefit and may in fact have resulted in improvement of blood flow to his hand. I first terminated procedure by removing all guidewires and catheters using an Angio-Seal for closure in the right groin. Should note that we did do the procedure under heparinization. Patient was removed to recovery in stable cond ition having tolerated procedure well. Sponge and needle counts correct.
== END 2019-03-04 20:19 | disposition home or self-care (01) ==
LOC: CATHLABREC 12:18
PROVIDERS: ATTEND Surgery Vascular Surgery
DX: I12.0 Hypertensive chronic kidney disease with stage 5 chronic kidney disease or end stage renal disease (principal); E11.22 Type 2 diabetes mellitus with diabetic chronic kidney disease; N18.6 End stage renal disease; E11.39 Type 2 diabetes mellitus with other diabetic ophthalmic complication; M62.242 Nontraumatic ischemic infarction of muscle, left hand; H40.9 Unspecified glaucoma; F17.210 Nicotine dependence, cigarettes, uncomplicated; Z99.2 Dependence on renal dialysis; Z98.890 Other specified postprocedural states; Z79.899 Other long term (current) drug therapy; Z86.2 Personal history of diseases of the blood and blood-forming organs and certain disorders involving the immune mechanism
CPT/HCPCS: 36217; 36415; 75710; 76937; 80048; 85025; 85610; 85730; 99156; 99157; C1760; C1769; C1894; J0690; J1200; J1644; J2250; J3010; J7040; Q9967

== ENCOUNTER 2019-04-29 09:11 | Day surgery (SDC) | payer MEDICARE ==
--- NOTE | 2019-04-29 09:50 | Anesthesia Consultation ---
Anesthesia Consult and Med Hx Date of service: 04/29/19 - Airway Anesthetic Teeth Evaluation: Poor ROM Head & Neck: Adequate Mental/Hyoid Distance: Adequate Mallampati Class: Class II Intubation Access Assessment: Good - Pulmonary Exam CTA: Yes - Cardiac Exam Cardiac Exam: RRR - Pre-Operative Health Status ASA Pre-Surgery Classification: ASA3 Proposed Anesthetic Plan: General - Pulmonary Hx Smoking: Yes (1/2 PPD x 10yrs) Hx Asthma: No Hx Respiratory Symptoms: No SOB: No COPD: No - Cardiovascular System Hx Hypertension: Yes (off antihypertensives x 2 wks; reports low BP) Hx Heart Attack/AMI: No Hx Percutaneous Transluminal Coronary Angioplasty (PTCA): No - Central Nervous System Hx Seizures: No CVA: No Hx Psychiatric Problems: No - Gastrointestinal Hx Gastroesophageal Reflux Disease: No - Endocrine Hx Renal Disease: Yes Hx End Stage Renal Disease: Yes (TTS HD via RIJ permcath; last HD 06/21) Hx Insulin Dependent Diabetes: Yes (Off insulin x2 week; reports glucose 120s at home) Hx Thyroid Disease: No - Other Systems Hx Alcohol Use: No Hx Substance Use: Yes (Marijuana occas) Hx Cancer: No Hx Obesity: No
--- NOTE | 2019-04-29 09:50 | Anesthesia Day of Surgery ---
Anesthesia Day of Surgery - Day of Surgery Patient Examined: Yes Patient H&P Reviewed: Yes Patient is NPO: Yes
[2019-04-29] MEDS ORDERED: ZOFRAN IV PRN (09:51)
[2019-04-29] MEDS ORDERED: DILAUDID IV PRN (09:51)
[2019-04-29] MEDS ORDERED: NACL 0.9% 1000 ML 1,000 ML IV SCH (10:00)
[2019-04-29] MEDS ORDERED: VERSED IV NR (10:00)
[2019-04-29 10:46] LABS: Hematocrit 32.7 % (35.5-45.6); Hemoglobin 11.5 gm/dl (11.8-15.2); Mean Corpuscular HGB Conc 35 % (32-34); Mean Corpuscular Volume 97 fl (84-94); Platelet Count 219 K/mm3 (140-440); Red Blood Count 3.36 M/mm3 (3.65-5.03); Red Cell Distribution Width 14.8 % (13.2-15.2)
[2019-04-29] MEDS ORDERED: HEPARIN 10,000 UNITS/10 ML ONE (10:54)
[2019-04-29] MEDS ORDERED: MARCAINE 0.5% INFILTRATI ONE ×3 (10:54→13:04)
[2019-04-29] MEDS ORDERED: XYLOCAINE 1%/ EPI 1:100,000 INFILTRATI ONE (10:55)
[2019-04-29] MEDS ORDERED: NACL 0.9% 500 ML 500 ML ONE (10:55)
[2019-04-29 11:07] LABS: Calcium 10.2 mg/dL (8.4-10.2)
[2019-04-29] MEDS ORDERED: DIPRIVAN 10 MG/ML IV ONE ×2 (12:21→12:51)
[2019-04-29] MEDS ORDERED: SUBLIMAZE ONE ×3 (12:21→14:43)
[2019-04-29] MEDS ORDERED: XYLOCAINE MPF 2% ONE (12:21)
[2019-04-29] MEDS ORDERED: XYLOCAINE 1% 20 mL INFILTRATI ONE ×2 (13:04)
[2019-04-29] MEDS ORDERED: NACL 0.9% IR ONE (13:04)
[2019-04-29] MEDS ORDERED: NACL 0.9% 500 ML IRRIGATION ONE (13:04)
[2019-04-29] MEDS ORDERED: HEPARIN 10,000 UNITS/10 ML IR ONE (13:04)
[2019-04-29] MEDS ORDERED: HEPARIN 10,000 UNITS/10 ML IV ONE (13:04)
[2019-04-29] MEDS ORDERED: PHENYLEPHRINE/NS Syringe 1,000 MCG/10 ML IV ONE (13:29)
[2019-04-29] MEDS ORDERED: NEO SYNEPHRINE ONE (13:29)
[2019-04-29] MEDS ORDERED: ZOFRAN ONE (13:29)
--- NOTE | 2019-04-29 15:33 | Operative Report ---
Operative Report Operative Report: Date of procedure: 04/29/2019 Pre-operative diagnosis: Complication of hemodialysis fistula, left arm, end- stage renal disease Post-operative diagnosis: Same Procedure name(s): Revision of AV fistula left arm using inflow proximalization technique interposition PTFE graft Surgeon: Baljit Oconnell MD [employer] Molding Machine Operator: Marcio Puga PA-C Anesthesia: Gen. EBL: 50 mL Specimen(s): None Complications: None Findings: Heavily calcified brachial artery with adequate inflow. Excellent thrill and bruit in the AV fistula post anastomosis, significantly improved arterial Doppler signals post revision Procedure: Patient in the supine position with the left arm extended the entire extremity is prepped and draped using standard sterile technique. Identify the brachial artery in the proximal arm just distal to the insertion zone of the transposed basilic AV fistula. A longitudinal incision was then made and carried down through the subcutaneous tissue and the artery was identified and mobilized for several centimeters and encircled using vessel loops. The artery was widely patent but had significant calcium in the wall although was more of the eggshell variant rather than the dense occlusive type. Attention was then turned to the AV fistula or a slightly oblique incision was made passing the existing fistula just above the antecubital fossa. The fistula itself was mobilized for several centimeters and encircled using vessel loops. The artery was then occluded arm and the 4 mm end of a 4-7mm heparin bonded step graft was brought into the surgical field. Small arteriotomy was then made and an end to side anastomosis was then created between the 2 vessels using 6-0 Prolene suture in running technique. Prior to completion of the suture line antegrade and retrograde flushing was performed and the suture line was then completed. Flow was redirected back to the hand but the graft was kept occluded. A curved Marlene-Wick tunneling device was then used to create a tunnel between the 2 incisions. I kept the tunnel posterior and medial in the arm to avoid confusion in the dialysis nurses as I do not intend for this access to be cannulated during dialysis. The graft was then pulled through the tunnel and on rotational fashion bringing it directly into the incision where the fistula resided. Fistula was then occluded and a longitudinal incision was made the medial aspect of the fistula. The graft was trimmed to an appropriate length and configuration and an end to side anastomosis was created using 6-0 Prolene suture in running technique. Prior to completion of the seizure line antegrade and retrograde flushing was performed and the suture line was completed. Flow was released to the outflow section of the fistula with return of excellent thrill and bruit in the fistula. At this point we then interrogated the Doppler signals at the wrist noted that they were dramatically improved compared to preoperatively. This suggested that the inflow patient had the desired effect of increasing blood flow to the hand without sacrificing the fistula. I then mobilized the fistula retrograde toward the arterial anastomosis and then proceeded to ligate the fistula. This manner we made permanent the new access inflow to the fistula. Hemostasis was excellent. All incisions were blocked with Marcaine and then closed in layers using 3-0 Vicryl subcutaneous for Monocryl subcuticular. Skin was sealed with Dermabond. Patient was extubated and returned to the recovery room in stable condition having tolerated the procedure well. Sponge and needle counts were correct.
--- NOTE | 2019-04-29 15:38 | Short Stay Summary ---
Short Stay Documentation Date of service: 04/29/19 Narrative H&P: Patient admitted to the operative suite for outpatient vision of his AV fistula in the left arm - History H&P: obtained from office - Allergies and Medications Current Medications: Allergies No Known Allergies Allergy (Verified 06/20/18 09:50) Home Medications Medication Instructions Recorded Confirmed Last Taken Type HYDROcodone/ACETAMINOPHEN [[place] 1 each PO Q4-6H PRN #26 tablet 06/23/18 04/29/19 04/22/19 11:00 Rx 5-325 Tablet] Calcium Acetate [Phoslo] 667 mg PO [facility] 03/04/19 04/29/19 04/28/19 19:00 History Ibuprofen [Motrin 800 MG tab] 800 mg PO PRN 03/04/19 04/29/19 04/22/19 11:00 History Active Medications Hydromorphone HCl (Dilaudid) 0.25 mg IV Q10MIN PRN PRN Reason: Pain, Moderate (4-6) Stop: 04/29/19 20:00 Sodium Chloride (Nacl 0.9% 1000 Ml) 1,000 mls @ 42 mls/hr IV DIRECT JESSICA Last Admin: 04/29/19 09:35 Dose: 42 mls/hr Documented by: Cefazolin Sodium (Ancef/Sterile Water 2 Gm/20 Ml) 2 gm in 20 mls @ 80 mls/hr IV PREOP NR; Protocol Stop: 04/29/19 23:59 Sodium Chloride (Nacl 0.9% 1000 Ml) 1,000 mls @ 42 mls/hr IV DIRECT JESSICA Midazolam HCl (Versed) 2 mg IV PREOP NR Stop: 04/29/19 23:59 Ondansetron HCl (Zofran) 4 mg IV ONCE PRN PRN Reason: Nausea And Vomiting Stop: 04/29/19 16:00 - Brief post op/procedure progress note Date of procedure: 04/29/19 Procedure: Pre-operative diagnosis: Complication of hemodialysis fistula, left arm, end- stage renal disease Post-operative diagnosis: Same Procedure name(s): Revision of AV fistula left arm using inflow proximalization technique interposition PTFE graft Surgeon: Baljit Oconnell MD [employer] Ironworker: Marcio Puga PA-C Anesthesia: Gen. EBL: 50 mL Specimen(s): None Complications: None Findings: Heavily calcified brachial artery with adequate inflow. Excellent thrill and bruit in the AV fistula post anastomosis, significantly improved arterial Doppler signals post revision Procedure: Patient in the supine position with the left arm extended the entire extremity is prepped and draped using standard sterile technique. Identify the brachial artery in the proximal arm just distal to the insertion zone of the transposed basilic AV fistula. A longitudinal incision was then made and carried down through the subcutaneous tissue and the artery was identified and mobilized for several centimeters and encircled using vessel loops. The artery was widely patent but had significant calcium in the wall although was more of the eggshell variant rather than the dense occlusive type. Attention was then turned to the AV fistula or a slightly oblique incision was made passing the existing fistula just above the antecubital fossa. The fistula itself was mobilized for several centimeters and encircled using vessel loops. The artery was then occluded arm and the 4 mm end of a 4-7mm heparin bonded step graft was brought into the surgical field. Small arteriotomy was then made and an end to side anastomosis was then created between the 2 vessels using 6-0 Prolene suture in running technique. Prior to completion of the suture line antegrade and retrograde flushing was performed and the suture line was then completed. Flow was redirected back to the hand but the graft was kept occluded. A curved Marlene-Wick tunneling device was then used to create a tunnel between the 2 incisions. I kept the tunnel posterior and medial in the arm to avoid confusion in the dialysis nurses as I do not intend for this access to be cannulated during dialysis. The graft was then pulled through the tunnel and on rotational fashion bringing it directly into the incision where the fistula resided. Fistula was then occluded and a longitudinal incision was made the medial aspect of the fistula. The graft was trimmed to an appropriate length and configuration and an end to side anastomosis was created using 6-0 Prolene suture in running technique. Prior to completion of the seizure line antegrade and retrograde flushing was performed and the suture line was completed. Flow was released to the outflow section of the fistula with return of excellent thrill and bruit in the fistula. At this point we then interrogated the Doppler signals at the wrist noted that they were dramatically improved compared to preoperatively. This suggested that the inflow patient had the desired effect of increasing blood flow to the hand without sacrificing the fistula. I then mobilized the fistula retrograde toward the arterial anastomosis and then proceeded to ligate the fistula. This manner we made permanent the new access inflow to the fistula. Hemostasis was excellent. All incisions were blocked with Marcaine and then closed in layers using 3-0 Vicryl subcutaneous for Monocryl subcuticular. Skin was sealed with Dermabond. Patient was extubated and returned to the recovery room in stable condition having tolerated the procedure well. Sponge and needle counts were correct. - Hospital course Hospital course: Unremarkable - Disposition Condition at discharge: Good Disposition: [id number] TO HOME OR SELFCARE - Discharge Diagnoses (1) Mechanical complication of arteriovenous fistula surgically created Status: Chronic Qualifiers: Encounter type: subsequent encounter Qualified Code(s): T82.590D - Other mechanical complication of surgically created arteriovenous fistula, subsequent encounter (2) End stage renal disease Status: Chronic Short Stay Discharge Plan Weight Bearing Status: Full Weight Bearing Diet: renal Wound: keep clean and dry Special Instructions: no heavy lifting Follow up with: KAYE KRUSE MD [Primary Care Provider] - 7 Days BALJIT OCONNELL MD [Staff Physician] - 14 Days Prescriptions: HYDROcodone/APAP 5-325 [[place] 5/325] 1 each PO Q6HR PRN #20 tablet PRN Reason: Pain, Moderate (4-6)
--- NOTE | 2019-04-29 16:17 | Post Anesthesia Evaluation ---
- Post Anesthesia Evaluation Patient Participated: Yes Airway Patent: Yes Stable Respiratory Function: Yes Nausea/Vomiting: No Temp > 96.8F: Yes Pain Manageable: Yes Adequeate Hydration: Yes Anesthesia Complications: No Block Receding Appropriately: Not Applicable Patient on Ventilator: No
[2019-04-29 16:41] VITALS: BP 115/75
== END 2019-04-29 09:12 | disposition home or self-care (01) ==
LOC: OR 09:11
PROVIDERS: ATTEND Surgery Vascular Surgery
DX: T82.590A Other mechanical complication of surgically created arteriovenous fistula, initial encounter (principal); T82.898A Other specified complication of vascular prosthetic devices, implants and grafts, initial encounter; I12.0 Hypertensive chronic kidney disease with stage 5 chronic kidney disease or end stage renal disease; E11.22 Type 2 diabetes mellitus with diabetic chronic kidney disease; N18.6 End stage renal disease; E11.39 Type 2 diabetes mellitus with other diabetic ophthalmic complication; H40.9 Unspecified glaucoma; F17.210 Nicotine dependence, cigarettes, uncomplicated; Z99.2 Dependence on renal dialysis; Z98.890 Other specified postprocedural states; Z86.2 Personal history of diseases of the blood and blood-forming organs and certain disorders involving the immune mechanism; Y83.8 Other surgical procedures as the cause of abnormal reaction of the patient, or of later complication, without mention of misadventure at the time of the procedure; Y92.89 Other specified places as the place of occurrence of the external cause
CPT/HCPCS: 36415; 36832; 80048; 82803; 82962; 85025; J0690; J1644; J2370; J2405; J2704; J3010; J7030; J7040; C1768; J2250

== ENCOUNTER 2019-07-23 11:14 | Observation (INO) | payer MEDICARE ==
--- NOTE | 2019-07-23 11:30 | Emergency Department Report ---
ED General Adult HPI - General Chief complaint: Medical Clearance Stated complaint: MISSED DIALYSIS Time Seen by Provider: 07/23/19 11:24 Source: patient, EMS Mode of arrival: Ambulatory Limitations: No Limitations - History of Present Illness Initial comments: Patient is a 38-year-old male that presents emergency room with complaints of missed dialysis. Patient states she went to dialysis today and because he missed 2 treatments at dialysis his dialysis sent here for in-hospital dialysis. Patient states that he completely refused to do his dialysis. Patient denies chest pain. Patient denies symptoms. Patient denies shortness of breath. Nakita ent denies muscle cramps. Patient states he feels fine. Patient states he has missed more than 2 dialysis in the past and they still done it. Patient states he was is busy and he didn't have time to go to dialysis. -: Sudden Consistency: constant Improves with: none Worsens with: none Associated Symptoms: denies other symptoms. denies: confusion, chest pain, cough, diaphoresis, fever/chills, headaches, loss of appetite, malaise, nausea/vomiting, rash, seizure, shortness of breath, syncope, weakness, other Treatments Prior to Arrival: none - Related Data Allergies Allergy/AdvReac Type Severity Reaction Status Date / Time No Known Allergies Allergy Verified 06/20/18 09:50 ED Review of Systems ROS: Stated complaint: MISSED DIALYSIS Other details as noted in HPI Constitutional: denies: chills, fever Eyes: denies: eye pain, eye discharge, vision change ENT: denies: ear pain, throat pain Respiratory: denies: cough, shortness of breath, wheezing Cardiovascular: denies: chest pain, palpitations Endocrine: no symptoms reported Gastrointestinal: denies: abdominal pain, nausea, diarrhea Genitourinary: denies: urgency, dysuria Musculoskeletal: denies: back pain, joint swelling, arthralgia Skin: denies: rash, lesions Neurological: denies: headache, weakness, paresthesias Psychiatric: denies: anxiety, depression Hematological/Lymphatic: denies: easy bleeding, easy bruising ED Past Medical Hx - Past Medical History Previous Medical History?: Yes Hx Hypertension: Yes (off antihypertensives x 2 wks; reports low BP) Hx Heart Attack/AMI: No Hx Diabetes: Yes (DIET CONTROLLED) Hx Renal Disease: Yes Hx Seizures: No Hx Asthma: No Hx COPD: No - Surgical History Past Surgical History?: Yes Additional Surgical History: fistula L. arm - Family History Family history: no significant - Social History Smoking Status: Current Every Day Smoker Substance Use Type: None ED Physical Exam - General Limitations: No Limitations General appearance: alert, in no apparent distress - Head Head exam: Present: atraumatic, normocephalic - Eye Eye exam: Present: normal appearance - ENT ENT exam: Present: mucous membranes moist - Neck Neck exam: Present: normal inspection - Respiratory Respiratory exam: Present: normal lung sounds bilaterally. Absent: respiratory distress - Cardiovascular Cardiovascular Exam: Present: regular rate, normal rhythm. Absent: systolic murmur, diastolic murmur, rubs, gallop - GI/Abdominal GI/Abdominal exam: Present: soft, normal bowel sounds - Rectal Rectal exam: Present: deferred - Extremities Exam Extremities exam: Present: normal inspection - Back Exam Back exam: Present: normal inspection - Neurological Exam Neurological exam: Present: alert, oriented X3 - Psychiatric Psychiatric exam: Present: normal affect, normal mood - Skin Skin exam: Present: warm, dry, intact, normal color. Absent: rash ED Course Vital Signs 07/23/19 07/23/19 11:42 11:52 Temperature 98.2 F 98.2 F Pulse Rate 84 Respiratory 13 Rate Blood Pressure 172/80 [Right] O2 Sat by Pulse 100 Oximetry - Reevaluation(s) Reevaluation #1: I discussed all results patient. I discussed plan of care with patient. Patient will be admitted to the hospital service for dialysis. 07/23/19 13:18 - Consultations Consultation #1: Patient's can sterilizer paged. 07/23/19 13:[address] 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 Nephrology to order dialysis. 07/23/19 14:00 Consultation #2: Hospitalist consult for admission. Hospitalist to admit patient. 07/23/19 13:19 ED Medical Decision Making - Lab Data Result diagrams: 07/23/19 12:03 07/23/19 12:03 - Medical Decision Making Patient is a 38-year-old male that presents emergency room for missed dialysis and needing in-hospital dialysis. Patient states he missed 3 treatments. Patient's labs abnormal and positive for elevated creatinine, elevated BUN/creatinine and elevated potassium. Nephrology consult at for in-house dialysis. Nephrology will establish in-house dialysis. Patient admitted to the hospitalist service. - Differential Diagnosis dialysis. Hyperkalemia. Critical Care Time: Yes Critical care time in (mins) excluding proc time.: 35 Critical care attestation.: If time is entered above; I have spent that time in minutes in the direct care of this critically ill patient, excluding procedure time. Critical Care Time: 35 minutes ED Disposition Clinical Impression: Missed dialysis, Hyperkalemia, ESRD (end stage renal disease) Disposition: OP ADMIT IP TO THIS HOSP Is pt being admited?: Yes Does the pt Need Aspirin: No Condition: Critical Time of Disposition: 13:20
[2019-07-23 12:42] LABS: Basophils % (Auto) 0.8 % (0.0-1.8); Eosinophils # (Auto) 0.2 K/mm3 (0.0-0.4); Eosinophils % (Auto) 5.9 % (0.0-4.3); Hematocrit 38.6 % (35.5-45.6); Lymphocytes # (Auto) 0.9 K/mm3 (1.2-5.4); Mean Corpuscular HGB Conc 34 % (32-34); Mean Corpuscular Volume 98 fl (84-94); Monocytes # (Auto) 0.2 K/mm3 (0.0-0.8); Monocytes % (Auto) 6.8 % (0.0-7.3); Platelet Count 170 K/mm3 (140-440); Red Blood Count 3.96 M/mm3 (3.65-5.03); Red Cell Distribution Width 15.1 % (13.2-15.2)
[2019-07-23 13:06] LABS: Albumin 4.4 g/dL (3.9-5); Calcium 9.7 mg/dL (8.4-10.2)
[2019-07-23] MEDS ORDERED: SODIUM CHLORIDE 0.9% 100 ML IV PRN (15:23)
[2019-07-23 16:36] LABS: Hepatitis B Surface Antigen Non-Reactive (Negative); Hepatitis C Virus Antibody Non-Reactive (NonReactive)
--- NOTE | 2019-07-23 19:04 | Consultation ---
History of Present Illness - Reason for Consult end stage renal disease - History of Present Illness 38 year old with medical history of HTN, ESRD, DM type II, severe peripheral vascular disease , admitted following missed hemodialysis treatment . He is on dialysis at [facility]. He denies associated orthopnea or PND. He does not have any lower extremity edema. Denies any abdominal pain ,nausea or vomitting. has left digital ulcers which have been improving. Medications and Allergies Allergies Allergy/AdvReac Type Severity Reaction Status Date / Time No Known Allergies Allergy Verified 06/20/18 09:50 Active Meds: Active Medications Sodium Chloride (Nacl 0.9%) 100 mls @ 999 mls/hr IV KAELA PRN PRN Reason: Hypotension Review of Systems Constitutional: no weight loss, no weight gain Ears, nose, mouth and throat: no deferred, no ear pain, no ear discharge Cardiovascular: no chest pain, no orthopnea Respiratory: no cough, no cough with sputum Gastrointestinal: no abdominal pain, no nausea Genitourinary Male: no dysuria, no hematuria Rectal: no pain, no incontinence Musculoskeletal: no neck stiffness, no neck pain Integumentary: no deferred, no rash Neurological: no head injury, no transient paralysis Psychiatric: no anxiety, no memory loss Endocrine: no cold intolerance, no heat intolerance Hematologic/Lymphatic: no easy bruising, no easy bleeding Exam - Vital Signs Vital signs: Vital Signs Temp 98.2 F 07/23/19 11:42 - General Appearance General appearance: well-developed, well-nourished EENT: ATNC, PERRL Neck: Present: neck supple Respiratory: Clear to Ascultation Heart: regular, S1S2 Gastrointestinal: Present: normal, normoactive bowel sounds Integumentary: no rash Neurologic: alert and oriented x3, CN 3-12 intact Musculoskeletal: Present: deferred, other (left digital ulcers with changes. ) Psychiatric: mood/affect appropriate Results - Lab Results 07/23/19 12:03 07/23/19 12:03 Most recent lab results Calcium 9.7 mg/dL (8.4-10.2) 07/23/19 12:03 Assessment and Plan - Patient Problems (1) Hyperkalemia Current Visit: Yes Status: Acute Plan to address problem: Hyperkalemia - Will intiate hemodialysis. (2) End stage renal disease Current Visit: Yes Status: Chronic Plan to address problem: ESRD - will initiate dialysis - continue HD daily - patient missed HD x 2 sessions . - -repeat HD in am. (3) Mechanical complication of arteriovenous fistula surgically created Current Visit: No Status: Chronic Qualifiers: Encounter type: subsequent encounter Qualified Code(s): T82.590D - Other mechanical complication of surgically created arteriovenous fistula, subsequent encounter Plan to address problem: AVF with thrombosis s/p declot procedure. follow up with vascular surgery. (4) HTN (hypertension) Current Visit: Yes Status: Acute Plan to address problem: HTN: uncontrolled continue current medications. Will intiate dialysis. (5) Metabolic acidosis Current Visit: Yes Status: Acute Plan to address problem: Metabolic acidosis - Will intiate hemodialysis.
--- NOTE | 2019-07-24 02:34 | History and Physical Report ---
History of Present Illness Date of examination: 07/23/19 Date of admission: 07/23/19 13:49 Chief complaint: Missed HD for one week. History of present illness: 38-year-old male with pmh of ESRD ,Htn,and Diet controlled diabetes comes in for hemodialysis.He missed dialysis x2 sessions.Dialysis center sent him here for HD and Labs for possible Hyuperkalemia.No SOB.No chest pain.No fever or c hills.Last HD was on a week ago.He missed HD on saturday and Saturday. Past Medical History Previous Medical History?: Yes Hypertension: Yes (off antihypertensives x 2 wks; reports low BP) Diabetes: Yes (DIET CONTROLLED) Renal Disease: Yes Surgical History Past Surgical History?: Yes Additional Surgical History: fistula L. arm Family History Family history: no significant Social History Smoking Status: Current Every Day Smoker Substance Use Type: None Review of Systems ROS: Stated complaint: MISSED DIALYSIS Other details as noted in HPI Constitutional: denies: chills, fever Eyes: denies: eye pain, eye discharge, vision change ENT: denies: ear pain, throat pain Respiratory: denies: cough, shortness of breath, wheezing Cardiovascular: denies: chest pain, palpitations Endocrine: no symptoms reported Gastrointestinal: denies: abdominal pain, nausea, diarrhea Genitourinary: denies: urgency, dysuria Musculoskeletal: denies: back pain, joint swelling, arthralgia Skin: denies: rash, lesions Neurological: denies: headache, weakness, paresthesias Psychiatric: denies: anxiety, depression Hematological/Lymphatic: denies: easy bleeding, easy bruising Medications and Allergies Allergies Allergy/AdvReac Type Severity Reaction Status Date / Time No Known Allergies Allergy Verified 06/20/18 09:50 Active Meds: Active Medications Sodium Chloride (Nacl 0.9%) 100 mls @ 999 mls/hr IV KAELA PRN PRN Reason: Hypotension Exam - Constitutional Vitals: Temp Pulse Resp BP Pulse Ox 98.6 F 90 20 142/78 98 07/23/19 20:10 07/23/19 20:10 07/23/19 23:55 07/23/19 20:10 07/23/19 20:10 General appearance: Present: mild distress, well-nourished - EENT Eyes: Present: PERRL ENT: hearing intact, clear oral mucosa - Neck Neck: Present: supple, normal ROM - Respiratory Respiratory effort: normal Respiratory: bilateral: CTA - Cardiovascular Heart rate: 78 Rhythm: regular Heart Sounds: Present: S1 & S2. Absent: rub, click - Extremities Extremities: no ischemia, pulses intact, pulses symmetrical, No edema Peripheral Pulses: within normal limits - Abdominal General gastrointestinal: Present: soft, non-tender, non-distended, normal bowel sounds Male genitourinary: Present: normal - Integumentary Integumentary: Present: clear, warm, dry - Musculoskeletal Musculoskeletal: gait normal, strength equal bilaterally - Psychiatric Psychiatric: appropriate mood/affect, intact judgment & insight - Neurologic Neurologic: CNII-XII intact, moves all extremities - Allied Health Allied health notes reviewed: nursing, case management Results - Labs CBC & Chem 7: 07/23/19 12:03 07/23/19 12:03 Labs: Laboratory Last Values WBC 3.0 K/mm3 (4.5-11.0) L 07/23/19 12:03 RBC 3.96 M/mm3 (3.65-5.03) 07/23/19 12:03 Hgb 13.0 gm/dl (11.8-15.2) 07/23/19 12:03 Hct 38.6 % (35.5-45.6) 07/23/19 12:03 MCV 98 fl (84-94) H 07/23/19 12:03 MCH 33 pg (28-32) H 07/23/19 12:03 MCHC 34 % (32-34) 07/23/19 12:03 RDW 15.1 % (13.2-15.2) 07/23/19 12:03 Plt Count 170 K/mm3 (140-440) 07/23/19 12:03 Lymph % (Auto) 31.0 % (13.4-35.0) 07/23/19 12:03 Scott % (Auto) 6.8 % (0.0-7.3) 07/23/19 12:03 Eos % (Auto) 5.9 % (0.0-4.3) H 07/23/19 12:03 Baso % (Auto) 0.8 % (0.0-1.8) 07/23/19 12:03 Lymph # 0.9 K/mm3 (1.2-5.4) L 07/23/19 12:03 Scott # 0.2 K/mm3 (0.0-0.8) 07/23/19 12:03 Eos # 0.2 K/mm3 (0.0-0.4) 07/23/19 12:03 Baso # 0.0 K/mm3 (0.0-0.1) 07/23/19 12:03 Seg Neutrophils % 55.5 % (40.0-70.0) 07/23/19 12:03 Seg Neutrophils # 1.7 K/mm3 (1.8-7.7) L 07/23/19 12:03 Sodium 142 mmol/L (137-145) 07/23/19 12:03 Potassium 5.1 mmol/L (3.6-5.0) H 07/23/19 12:03 Chloride 95.9 mmol/L (98-107) L 07/23/19 12:03 Carbon Dioxide 21 mmol/L (22-30) L 07/23/19 12:03 Anion Gap 30 mmol/L 07/23/19 12:03 BUN 73 mg/dL (9-20) H 07/23/19 12:03 Creatinine 20.4 mg/dL (0.8-1.5) H 07/23/19 12:03 Estimated GFR 3 ml/min 07/23/19 12:03 BUN/Creatinine Ratio 4 % 07/23/19 12:03 Glucose 96 mg/dL (75-100) 07/23/19 12:03 Calcium 9.7 mg/dL (8.4-10.2) 07/23/19 12:03 Total Bilirubin 0.30 mg/dL (0.1-1.2) 07/23/19 12:03 AST 11 units/L (5-40) 07/23/19 12:03 ALT 10 units/L (7-56) 07/23/19 12:03 Alkaline Phosphatase 90 units/L (35-129) 07/23/19 12:03 Total Protein 7.5 g/dL (6.3-8.2) 07/23/19 12:03 Albumin 4.4 g/dL (3.9-5) 07/23/19 12:03 Albumin/Globulin Ratio 1.4 % 07/23/19 12:03 Hepatitis A IgM Ab Non-reactive (NonReactive) 07/23/19 15:40 Hep Bs Antigen Non-reactive (Negative) 07/23/19 15:40 Hep B Core IgM Ab Non-reactive (NonReactive) 07/23/19 15:40 Hepatitis C Antibody Non-reactive (NonReactive) 07/23/19 15:40 Short CBC 07/23/19 Range/Units 12:03 WBC 3.0 L (4.5-11.0) K/mm3 Hgb 13.0 (11.8-15.2) gm/dl Hct 38.6 (35.5-45.6) % Plt Count 170 (140-440) K/mm3 BMP 07/23/19 12:03 Sodium 142 Potassium 5.1 H Chloride 95.9 L Carbon Dioxide 21 L BUN 73 H Creatinine 20.4 H Glucose 96 Calcium 9.7 Liver Function 07/23/19 Range/Units 12:03 Total Bilirubin 0.30 (0.1-1.2) mg/dL AST 11 (5-40) units/L ALT 10 (7-56) units/L Alkaline Phosphatase 90 (35-129) units/L Albumin 4.4 (3.9-5) g/dL Assessment and Plan Advance Directives: Yes (Full code) VTE prophylaxis?: Chemical Plan of care discussed with patient/family: Yes - Patient Problems (1) Hyperkalemia Current Visit: Yes Status: Acute Plan to address problem: Emergent HD (2) ESRD needing dialysis Current Visit: Yes Status: Chronic Plan to address problem: Emergent HD today. Nephrology consult. (3) HTN (hypertension) Current Visit: Yes Status: Chronic Qualifiers: Hypertension type: essential hypertension Qualified Code(s): I10 - Essential (primary) hypertension Plan to address problem: Cont antihypertensives (4) Missed dialysis Current Visit: Yes Status: Acute Plan to address problem: Patient counselled about dangers of missing HD (5) Mechanical complication of arteriovenous fistula surgically created Current Visit: No Status: Acute Qualifiers: Encounter type: subsequent encounter Qualified Code(s): T82.590D - Other mechanical complication of surgically created arteriovenous fistula, subsequent encounter Plan to address problem: AVF with thrombosis s/p declot procedure. follow up with vascular surgery. (6) T2DM (type 2 diabetes mellitus) Current Visit: Yes Status: Chronic Qualifiers: Diabetes mellitus continuous churn buttermaker insulin use: without continuous churn buttermaker use Plan to address problem: Check A1c Coverage for now (7) DVT prophylaxis Current Visit: Yes Status: Acute Plan to address problem: Heparin Sq and GI prophylaxis
[2019-07-24] MEDS ORDERED: oxyCODONE /ACETAMINOPHEN 5-325MG TAB PO PRN (02:49)
[2019-07-24] MEDS ORDERED: ONDANSETRON 4 MG/2 ML INJ IV PRN (02:49)
[2019-07-24] MEDS ORDERED: ACETAMINOPHEN 325 MG TAB PO PRN (02:49)
[2019-07-24] MEDS: INSULIN LISPRO 100 UNIT/ML SUB-Q SCH ×3 (07:25→19:55)
[2019-07-24] MEDS: LOSARTAN 50 MG TAB PO SCH ×2 (08:54→12:17)
[2019-07-24 09:38] LABS: Calcium 9.5 mg/dL (8.4-10.2)
[2019-07-24] MEDS ORDERED: HEPARIN 5,000 UNIT/1 ML VIAL SUB-Q SCH (10:00)
--- NOTE | 2019-07-24 13:36 | Discharge Summary ---
Providers - Providers Date of Admission: 07/23/19 13:49 Date of discharge: 07/24/19 Attending physician: LAVONNE GOMEZ 07/23/19 19:10 Consult to Physician [CONS] Routine Comment: Consulting Provider: ERIK FAJARDO Physician Instructions: Reason For Exam: esrd Primary care physician: CHIEF DATA OFFICER Hospitalization Condition: Stable Hospital course: Patient is a 38-year-old male with pmh of ESRD ,Htn,and Diet controlled diabetes comes in for hemodialysis.He missed dialysis x2 sessions.Dialysis center sent him here for HD and Labs for possible Hyuperkalemia.No SOB.No chest pain.No fever or c hills.Last HD was on a week ago.He missed HD on saturday and Saturday. (1) Hyperkalemia Current Visit: Yes Status: Acute Plan to address problem: Emergent HD (2) ESRD needing dialysis Current Visit: Yes Status: Chronic Plan to address problem: Emergent HD today. Nephrology consult. (3) HTN (hypertension) Current Visit: Yes Status: Chronic Qualifiers: Hypertension type: essential hypertension Qualified Code(s): I10 - Essential (primary) hypertension Plan to address problem: Cont antihypertensives (4) Missed dialysis Current Visit: Yes Status: Acute Plan to address problem: Patient counselled about dangers of missing HD (5) Mechanical complication of arteriovenous fistula surgically created Current Visit: No Status: Acute Qualifiers: Encounter type: subsequent encounter Qualified Code(s): T82.590D - Other mechanical complication of surgically created arteriovenous fistula, subsequent encounter Plan to address problem: AVF with thrombosis s/p declot procedure. follow up with vascular surgery. (6) T2DM (type 2 diabetes mellitus) Current Visit: Yes Status: Chronic Qualifiers: Diabetes mellitus residential insulin use: without residential use Plan to address problem: Check A1c Coverage for now (7) DVT prophylaxis Current Visit: Yes Status: Acute Plan to address problem: Heparin Sq and GI prophylaxis Disposition: - TO HOME OR SELFCARE Time spent for discharge: 31 minutes Core Measure Documentation - Palliative Care Palliative Care/ Comfort Measures: Not Applicable - Core Measures Any of the following diagnoses?: none - VTE Discharge Requirements Deep Vein Thrombosis/Pulmonary Embolism Present on Admission: No Has pt received <5 days of overlap therapy or INR<2.0: No Anticoagulant overlap therapy prescribed at discharge: No Contraindication No Overlap Therapy order at DC: Not Indicated Exam - Constitutional Vitals: Temp Pulse Resp BP Pulse Ox 98.3 F 106 H 18 127/84 96 07/24/19 05:28 07/24/19 08:54 07/24/19 05:28 07/24/19 08:54 07/24/19 05:28 General appearance: Present: no acute distress - EENT Eyes: Absent: PERRL, EOM intact (right eye cloudy with a patch) - Neck Neck: Present: supple - Respiratory Respiratory effort: normal Respiratory: bilateral: CTA - Cardiovascular Rhythm: regular Heart Sounds: Present: S1 & S2 - Abdominal General gastrointestinal: Present: soft, non-tender, non-distended, normal bowel sounds - Integumentary Integumentary: Absent: clear (digit black) - Musculoskeletal Musculoskeletal: strength equal bilaterally - Psychiatric Psychiatric: appropriate mood/affect, intact judgment & insight - Neurologic Neurologic: CNII-XII intact, no focal deficits, moves all extremities Plan Activity: other (no strenous activity unless cleared by PCP) Diet: renal Additional Instructions: Make sure you go to Hemodialysis, DO NOT miss a session Follow up with: PRIMARY MD TATI [Primary Care Provider] - 3-5 Days ERIK FAJARDO MD [Staff Physician] - 7 Days
[2019-07-24 13:50] VITALS: BP 132/80
--- NOTE | 2019-07-24 16:15 | Progress Note ---
Assessment and Plan # End stage renal disease - continue HD T//, will resume tomorrow at home dialysis unit - access intact s/p declot - will follow up with vascular surgery - renally dose all medications # HTN (hypertension): BP better controlled - continue current medications. - UF as tolerated # Metabolic acidosis - Improved with HD Subjective Date of service: 07/24/19 Principal diagnosis: ESRD Interval history: no acute events noted. Doing well today, no issues with HD. Ready to go home. Will go to dialysis tomorrow Objective - Exam Narrative Exam: General appearance: well-developed, well-nourished EENT: ATNC, PERRL Neck: Present: neck supple Respiratory: Clear to Auscultation Heart: regular, S1S2 Gastrointestinal: Present: normal, normoactive bowel sounds Integumentary: no rash Neurologic: alert and oriented x3, CN 3-12 intact Musculoskeletal: left digital ulcers with changes Psychiatric: mood/affect appropriate - Vital Signs Vital signs: Vital Signs - 12hr 07/24/19 07/24/19 07/24/19 05:28 08:54 11:27 Temperature 98.3 F 98.9 F Pulse Rate 88 106 H 92 H Respiratory 18 20 Rate Blood Pressure 137/78 127/84 132/80 O2 Sat by Pulse 96 96 Oximetry - Lab 07/23/19 12:03 07/24/19 08:50 Most recent lab results Calcium 9.5 mg/dL (8.4-10.2) 07/24/19 08:50 Medications & Allergies - Medications Allergies/Adverse Reactions: Allergies No Known Allergies Allergy (Verified 06/20/18 09:50) Active Medications: Generic Name Dose Route Start Last Admin Trade Name Freq PRN Reason Stop Dose Admin Acetaminophen 650 mg 07/24/19 02:49 Tylenol PO Q4H PRN Pain MILD(1-3)/Fever >100.5/KINNEY Heparin Sodium (Porcine) 5,000 unit 07/24/19 10:00 07/24/19 10:00 Heparin SUB-Q Not Given Q12HR JESSICA Sodium Chloride 100 mls @ 999 mls/hr 07/23/19 15:23 Nacl 0.9% IV KAELA PRN Hypotension Insulin Human Lispro 0 unit 07/24/19 07:30 07/24/19 11:30 Humalog SUB-Q Not Given ACHS JESSICA Protocol Losartan Potassium 50 mg 10/25/19 02:51 07/24/19 12:17 Cozaar PO Not Given QDAY [facility] Ondansetron HCl 4 mg 07/24/19 02:49 Zofran IV Q8H PRN Nausea And Vomiting Oxycodone/Acetaminophen 1 tab 07/24/19 02:49 Percocet 5/325 PO Q6H PRN Pain, Moderate (4-6) Sodium Chloride 10 ml 07/24/19 10:00 07/24/19 12:18 Sodium Chloride Flush Syringe 10 Ml IV 10 ml BID [facility] Administration Sodium Chloride 10 ml 07/24/19 02:49 Sodium Chloride Flush Syringe 10 Ml IV PRN PRN LINE FLUSH
== END 2019-07-24 16:30 | disposition home or self-care (01) ==
LOC: ED 11:14 → 3A 13:49
PROVIDERS: ADMIT Internal Medicine; ATTEND Internal Medicine
DX: I12.0 Hypertensive chronic kidney disease with stage 5 chronic kidney disease or end stage renal disease (principal); E11.22 Type 2 diabetes mellitus with diabetic chronic kidney disease; N18.6 End stage renal disease; T85.691A Other mechanical complication of intraperitoneal dialysis catheter, initial encounter; E87.5 Hyperkalemia; E87.2 Acidosis; Z99.2 Dependence on renal dialysis; F17.200 Nicotine dependence, unspecified, uncomplicated; X58.XXXA Exposure to other specified factors, initial encounter; Y92.89 Other specified places as the place of occurrence of the external cause
CPT/HCPCS: 36415; 80048; 80053; 80074; 82962; 83036; 85025; 99291; G0378; G0257

== ENCOUNTER 2019-11-28 11:05 | Observation (INO) | payer MEDICARE ==
[2019-11-28 11:57] LABS: Basophils % (Auto) 0.8 % (0.0-1.8); Eosinophils # (Auto) 0.4 K/mm3 (0.0-0.4); Eosinophils % (Auto) 11.6 % (0.0-4.3); Hemoglobin 11.5 gm/dl (11.8-15.2); Lymphocytes % (Auto) 30.7 % (13.4-35.0); Mean Corpuscular HGB Conc 35 % (32-34); Mean Corpuscular Volume 97 fl (84-94); Monocytes # (Auto) 0.3 K/mm3 (0.0-0.8); Monocytes % (Auto) 9.4 % (0.0-7.3); Platelet Count 154 K/mm3 (140-440); Red Blood Count 3.41 M/mm3 (3.65-5.03); Red Cell Distribution Width 14.3 % (13.2-15.2)
[2019-11-28 12:28] LABS: Calcium 9.6 mg/dL (8.4-10.2)
--- NOTE | 2019-11-28 12:48 | Emergency Department Report ---
ED General Adult HPI - General Chief complaint: Medical Clearance Stated complaint: MISSED 9 DAYS DIALYSIS Time Seen by Provider: 11/28/19 11:18 Source: EMS Mode of arrival: Stretcher Limitations: No Limitations - History of Present Illness Initial comments: Patient is a 39-year-old F [place] male with a past medical history of DM and end-stage renal disease who is presenting with a history of missed dialysis. Patient states his last dialysis was approximately 9 days ago. Patient missed dialysis because he had a dysfunction of his AV graft. Patient in the interim has had his AV graft repaired and he went to dialysis today and they turned away stating that he needed to come to the emergency department. Patient has no complaints of shortness of breath or chest pain. Patient is not clear why he was told he needed to come to the hospital instead of just receiving his scheduled dialysis. Severity scale (0 -10): 0 - Related Data Allergies Allergy/AdvReac Type Severity Reaction Status Date / Time No Known Allergies Allergy Verified 06/20/18 09:50 ED Review of Systems ROS: Stated complaint: MISSED 9 DAYS DIALYSIS Other details as noted in HPI Comment: All other systems reviewed and negative ED Past Medical Hx - Past Medical History Previous Medical History?: Yes Hx Hypertension: Yes (off antihypertensives x 2 wks; reports low BP) Hx Heart Attack/AMI: No Hx Diabetes: Yes (DIET CONTROLLED) Hx Renal Disease: Yes (Dialysis T, TH, Sat) Hx Seizures: No Hx Asthma: No Hx COPD: No - Surgical History Past Surgical History?: Yes Additional Surgical History: fistula L. arm - Social History Smoking Status: Current Some Day Smoker Substance Use Type: None ED Physical Exam - General Limitations: No Limitations General appearance: alert, in no apparent distress - Head Head exam: Present: atraumatic, normocephalic - Eye Eye exam: Present: normal appearance - ENT ENT exam: Present: normal orophraynx, mucous membranes moist - Neck Neck exam: Present: normal inspection - Respiratory Respiratory exam: Present: normal lung sounds bilaterally. Absent: respiratory distress, wheezes, rales, rhonchi - Cardiovascular Cardiovascular Exam: Present: regular rate, normal rhythm, normal heart sounds. Absent: systolic murmur, diastolic murmur, rubs, gallop - GI/Abdominal GI/Abdominal exam: Present: soft, normal bowel sounds. Absent: distended, tenderness, guarding, rebound - Rectal Rectal exam: Present: deferred - Extremities Exam Extremities exam: Present: normal inspection - Back Exam Back exam: Present: normal inspection - Neurological Exam Neurological exam: Present: alert, oriented X3 - Psychiatric Psychiatric exam: Present: normal affect, normal mood - Skin Skin exam: Present: warm, dry, intact, normal color. Absent: rash ED Course Vital Signs 11/28/19 11/28/19 11/28/19 11:15 11:38 11:41 Temperature 97.8 F Pulse Rate 75 71 Respiratory 13 17 Rate Blood Pressure 155/71 Blood Pressure 166/78 [Right] O2 Sat by Pulse 100 100 100 Oximetry ED Medical Decision Making - Lab Data Result diagrams: 11/28/19 11:37 11/28/19 11:37 - Medical Decision Making Patient does not appear to be fluid overloaded at this time. He does have elevation of his potassium level. His field observer Dr. Dowell has been consulted. It is the policy of the dialysis center that if the patient has not had dialysis as an outpatient greater than 5 days that they require emergent laboratory studies. Since the patient did appear stable his laboratory studies showed just a slight elevation of potassium he would have been able to go to dialysis however they are now closed. Dr. Santana was asked for our hospitalist team to admit the patient observation status and he can be dialyzed here and will likely be able to be discharged afterwards. Critical care attestation.: If time is entered above; I have spent that time in minutes in the direct care of this critically ill patient, excluding procedure time. ED Disposition Clinical Impression: End-stage renal disease needing dialysis, Hyperkalemia Disposition: OP ADMIT IP TO THIS HOSP Is pt being admited?: Yes Does the pt Need Aspirin: No Condition: Stable Time of Disposition: 13:12
[2019-11-28] MEDS ORDERED: SODIUM CHLORIDE 0.9% 100 ML IV PRN (13:15)
[2019-11-28] MEDS ORDERED: ACETAMINOPHEN 325 MG TAB PO PRN (13:34)
[2019-11-28] MEDS ORDERED: ONDANSETRON 4 MG/2 ML INJ IV PRN (13:34)
--- NOTE | 2019-11-28 13:35 | History and Physical Report ---
History of Present Illness Chief complaint: I missed dialysis and i was sent in here History of present illness: 39-year-old male with DM, ESRD on HD (T, R, SA), noncompliance, nicotine dependence, HTN presents to ED for evaluation. Patient states that he last underwent dialysis approximately 9 days ago and subsequently missed several dialysis sessions due to AV graft malfunction. Patient underwent repeat repair of AV graft and subsequently presents to his outpatient dialysis center for routine dialysis. Patient informed by dialysis center staff that he should be seen and evaluated in the hospital. Patient transported to [facility] via private vehicle. Patient seen and evaluated in the emergency department. Lab and imaging studies reviewed. Patient found to have end-stage renal disease, hyperkalemia, metabolic acidosis, secondary to missed dialysis. Patient placed in observation status and admitted to medical floor for medical stabilization and emergency dialysis. Nephrology team consulted in ED. Patient denies fever, chills, chest pain, palpitations, shortness of breath, productive cough, skin rash, recent ill contacts. Prior admission on 07/23/2019 reviewed. No medication listed at time of admission for reconciliation. Past History Past Medical History: diabetes, ESRD, hypertension Past Surgical History: Other (Left AV fistula) Social history: single, smoking Family history: diabetes, hypertension Medications and Allergies Allergies Allergy/AdvReac Type Severity Reaction Status Date / Time No Known Allergies Allergy Verified 06/20/18 09:50 Active Meds: Active Medications Sodium Chloride (Nacl 0.9%) 100 mls @ 999 mls/hr IV KAELA PRN PRN Reason: Hypotension Review of Systems Constitutional: no weight loss, no weight gain, no fever, no chills Ears, nose, mouth and throat: no ear pain, no ear discharge, no tinnitis, no decreased hearing, no nasal congestion, no nasal discharge Cardiovascular: no chest pain, no orthopnea, no palpitations Respiratory: no cough, no cough with sputum, no hemoptysis, no shortness of breath, no dyspnea on exertion Gastrointestinal: no abdominal pain, no nausea, no vomiting, no constipation, no change in bowel habits, no hematemesis Genitourinary Male: no dysuria, no hematuria, no flank pain, no discharge, no urinary frequency, no urinary hesitancy Rectal: no pain, no incontinence, no bleeding Musculoskeletal: no neck stiffness, no neck pain, no shooting arm pain, no arm numbness/tingling, no low back pain, no redness of joints Integumentary: no rash, no pruritis, no redness, no sores, no wounds, no jaundice Neurological: no head injury, no transient paralysis, no paralysis, no par athesias, no numbness, no seizures, no syncope, no tremors Psychiatric: no anxiety, no memory loss, no change in sleep habits, no sleep disturbances, no hypersomnia, no change in appetite Endocrine: no cold intolerance, no heat intolerance, no polydipsia, no nocturia, no excessive sweating, no deepening of the voice, no high blood sugars, no low blood sugars Hematologic/Lymphatic: no easy bruising, no easy bleeding, no lymphadenopathy Allergic/Immunologic: no urticaria, no wheezing, no persistent infections, no anaphylaxis Exam - Constitutional Vitals: Temp Pulse Resp BP Pulse Ox 97.8 F 71 17 166/78 100 11/28/19 11:15 11/28/19 11:41 11/28/19 11:41 11/28/19 11:41 11/28/19 11:41 General appearance: Present: no acute distress, well-nourished - EENT Eyes: Present: PERRL ENT: hearing intact, clear oral mucosa - Neck Neck: Present: supple, normal ROM - Respiratory Respiratory effort: normal Respiratory: bilateral: CTA - Cardiovascular Heart Sounds: Present: S1 & S2. Absent: rub, click - Extremities Extremities: pulses symmetrical, No edema Peripheral Pulses: within normal limits - Abdominal General gastrointestinal: Present: soft, non-tender, non-distended, normal bowel sounds Male genitourinary: Present: normal - Integumentary Integumentary: Present: clear, warm, dry - Musculoskeletal Musculoskeletal: gait normal, strength equal bilaterally - Psychiatric Psychiatric: appropriate mood/affect, intact judgment & insight - Neurologic Neurologic: CNII-XII intact, moves all extremities Results - Labs CBC & Chem 7: 11/28/19 11:37 11/28/19 11:37 Labs: Abnormal lab results 11/28/19 11/28/19 Range/Units 11:37 11:37 WBC 3.2 L (4.5-11.0) K/mm3 RBC 3.41 L (3.65-5.03) M/mm3 Hgb 11.5 L (11.8-15.2) gm/dl Hct 33.0 L (35.5-45.6) % MCV 97 H (84-94) fl MCH 34 H (28-32) pg MCHC 35 H (32-34) % Sully % (Auto) 9.4 H (0.0-7.3) % Eos % (Auto) 11.6 H (0.0-4.3) % Lymph # 1.0 L (1.2-5.4) K/mm3 Seg Neutrophils # 1.5 L (1.8-7.7) K/mm3 Potassium 5.4 H (3.6-5.0) mmol/L Carbon Dioxide 20 L (22-30) mmol/L BUN 73 H (9-20) mg/dL Creatinine 21.0 H (0.8-1.5) mg/dL Glucose 102 H (75-100) mg/dL Assessment and Plan - Patient Problems (1) End stage renal disease Status: Chronic Plan to address problem: Strict I's/O, daily weight, monitor urine output every shift, nephrology consulted in ED for urgent dialysis, avoid nephrotoxic agents. (2) Diabetes Status: Acute Plan to address problem: Sliding scale insulin, Accu-Chek, consistent carbohydrate diet, hypoglycemia protocol. (3) Non-compliance Status: Acute Plan to address problem: Patient counseled regarding risk of noncompliance with outpatient medical management as well as noncompliance with outpatient dialysis. Patient informed regarding increase risk of disease progression, and increased risk of . Patient acknowledges understanding instructions and will be more compliant in the future. Behavior change counseling +15 minutes. (4) Metabolic acidosis Status: Acute Plan to address problem: BMP, repeat BMP in a.m., urgent dialysis, (5) HTN (hypertension) Status: Chronic Qualifiers: Hypertension type: essential hypertension Qualified Code(s): I10 - Essential (primary) hypertension Plan to address problem: Monitor blood pressure every shift, IV hydralazine PRN for SBP greater than 150. (6) Hyperkalemia Status: Acute Plan to address problem: Urgent dialysis, no EKG changes. (7) Nicotine dependence with withdrawal Status: Acute Qualifiers: Nicotine product type: cigarettes Qualified Code(s): F17.213 - Nicotine dependence, cigarettes, with withdrawal Plan to address problem: Smoking cessation counseling, supportive care, +15 minutes. (8) DVT prophylaxis Status: Acute Plan to address problem: SCD to bilateral lower extremities while in bed, patient is ambulatory.
[2019-11-28] MEDS ORDERED: hydrALAZINE 20 MG/1 ML INJ IV PRN (13:45)
[2019-11-28 14:57] LABS: Hepatitis B Surface Antigen Non-Reactive (Negative); Hepatitis C Virus Antibody Non-Reactive (NonReactive)
[2019-11-28] MEDS ORDERED: ALBUTEROL 2.5 MG/3 ML NEBU IH PRN (16:00)
--- NOTE | 2019-11-28 17:39 | Consultation ---
History of Present Illness - Reason for Consult Consult date: 11/28/19 end stage renal disease - History of Present Illness Mr. Perez is a 39yo gentleman with ESRD on HD TTS who presented to the ED upon instruction of dialysis clinic as patient has not dialyzed in greater than a week. Patient's last outpatient dialysis treatment was on Nov 19. He reports malfunctioning AV access. He is s/p fistulogram w/ angioplasty by Dr. Oconnell as an outpatient. He denies nausea, vomiting, SOB. Past History Past Medical History: diabetes, ESRD, hypertension Past Surgical History: Other (Left AV fistula) Social history: single, smoking Family history: diabetes, hypertension Medications and Allergies Allergies Allergy/AdvReac Type Severity Reaction Status Date / Time No Known Allergies Allergy Verified 06/20/18 09:50 Active Meds: Active Medications Acetaminophen (Tylenol) 650 mg PO Q4H PRN PRN Reason: Pain MILD(1-3)/Fever >100.5/KINNEY Albuterol (Proventil) 2.5 mg IH Q4HRT PRN PRN Reason: Shortness Of Breath Hydralazine HCl (Apresoline) 10 mg IV Q6H PRN PRN Reason: Hypertension Sodium Chloride (Nacl 0.9%) 100 mls @ 999 mls/hr IV KAELA PRN PRN Reason: Hypotension Ondansetron HCl (Zofran) 4 mg IV Q8H PRN PRN Reason: Nausea And Vomiting Sodium Chloride (Sodium Chloride Flush Syringe 10 Ml) 10 ml IV BID JESSICA Sodium Chloride (Sodium Chloride Flush Syringe 10 Ml) 10 ml IV PRN PRN PRN Reason: LINE FLUSH Review of Systems All systems: negative Exam - Vital Signs Vital signs: Vital Signs Temp Pulse Resp BP Pulse Ox 97.8 F 75 13 155/71 100 11/28/19 11:15 11/28/19 11:15 11/28/19 11:15 11/28/19 11:15 11/28/19 11:15 - General Appearance General appearance: well-developed, well-nourished EENT: ATNC Respiratory: Clear to Ascultation Heart: regular, S1S2 Gastrointestinal: Present: normal. Absent: tenderness, distended Integumentary: no rash, warm and dry Neurologic: no focal deficit, alert and oriented x3 Psychiatric: cooperative Results - Lab Results 11/28/19 11:37 11/28/19 11:37 Most recent lab results Calcium 9.6 mg/dL (8.4-10.2) 11/28/19 11:37 Assessment and Plan Impression: * End stage renal disease * Hyperkalemia,mild * Metabolic acidosis * Anemia secondary to ESRD * Secondary hyperparathyroidism Plan: * Hemodialysis today * UF as tolerated * Resume TTS schedule next week * Renal diet * Dose medications for renal function * Stable for d/c following dialysis today
[2019-11-28 18:28] VITALS: BP 147/68
== END 2019-11-28 19:05 | disposition home or self-care (01) ==
LOC: ED 11:05 → 3A 13:34
PROVIDERS: ADMIT Internal Medicine; ATTEND Internal Medicine
DX: I12.0 Hypertensive chronic kidney disease with stage 5 chronic kidney disease or end stage renal disease (principal); E11.22 Type 2 diabetes mellitus with diabetic chronic kidney disease; N18.6 End stage renal disease; D63.1 Anemia in chronic kidney disease; N25.81 Secondary hyperparathyroidism of renal origin; E87.2 Acidosis; E87.5 Hyperkalemia; F17.213 Nicotine dependence, cigarettes, with withdrawal; Z91.15 Patient's noncompliance with renal dialysis; Z99.2 Dependence on renal dialysis; Z79.899 Other long term (current) drug therapy
CPT/HCPCS: 36415; 80048; 80074; 85025; 99284; G0257; G0378